=== PATIENT | male | born 1955 | race Native Hawaiian/Other Pacific Islander ===

== ENCOUNTER 2017-03-23 09:16 | Observation (INO) | payer OTHER ==
[~2017-03-23] VITALS: Ht 177.8 cm; Wt 96.0 kg
[2017-03-23] VITALS (9 sets, daily range): BP systolic 104–143; BP diastolic 68–79; PULSE 68–84; RESP 18; TEMP 97.8–98.5; O2SAT 96–99
[~2017-03-23 09:16] MED LIST: 1-ME1LIQ PO; ALTA2.5C4 PO; ATOR10 PO; CARV3.125 PO; IRBE150T4 PO; PRAS10TA PO; ST JTAB PO
[2017-03-23] MEDS ORDERED: ASPI1TAB69 PO (09:57)
[2017-03-23] MEDS ORDERED: CARV3.12 PO (09:57)
[2017-03-23] MEDS ORDERED: ATOR20TA15 PO (09:57)
[2017-03-23 10:16] LABS: AUTOMATED NEUTROPHIL # 4.9 TH/MM3 (1.8-7.7); BASOPHIL # 0.1 TH/MM3 (0-0.2); BASOPHIL % 1.1 % (0.0-2.0); EOSINOPHIL # 0.3 TH/MM3 (0-0.4); EOSINOPHIL % 4.1 % (0.0-4.0); HEMATOCRIT 45.1 % (39.0-51.0); HEMO FLAGS DIFF FINAL; LYMPHOCYTE # 1.6 TH/MM3 (1.0-4.8); MEAN CELL VOLUME 93.7 FL (80.0-100.0); MEAN CORPUSCULAR HEMOGLOBIN 31.6 PG (27.0-34.0); MEAN CORPUSCULAR HGB CONC 33.7 % (32.0-36.0); MONO % 10.1 % (0.0-8.0); NEUT % 63.7 % (16.0-70.0); PLATELET COUNT 272 TH/MM3 (150-450); RED BLOOD COUNT 4.81 MIL/MM3 (4.50-5.90); RED CELL DISTRIBUTION WIDTH 12.8 % (11.6-17.2); WHITE BLOOD COUNT 7.6 TH/MM3 (4.0-11.0)
[2017-03-23 10:29] LABS: APTT (PATIENT) 28.8 SEC (24.3-30.1); PROTHROMBIN TIME - PATIENT 11.5 SEC (9.8-11.6)
[2017-03-23 10:30] LABS: BICARBONATE 26.2 MEQ/L (21.0-32.0); POTASSIUM 4.2 MEQ/L (3.5-5.1)
[2017-03-23] MEDS ORDERED: HEPARIN-NS/PF INJ 500 ML ONE (12:15)
[2017-03-23] MEDS ORDERED: ADENOSINE STRESS TEST INJ 90 MG/30 ML VIAL ONE (12:43)
[2017-03-23] MEDS ORDERED: HEPARIN SODIUM - IV 10,000 UNITS/10 ML VIAL ONE (12:43)
[2017-03-23] MEDS ORDERED: TIROFIBAN INFUSION INJ 250 ML IV ONE (13:02)
[2017-03-23] MEDS ORDERED: CLOPIDOGREL 300 MG TAB ONE (13:07)
[2017-03-23] MEDS ORDERED: ASPIRIN 81 MG CHEW TAB ONE (13:07)
[2017-03-23] MEDS ORDERED: SODIUM CHLORIDE 0.9% FLUSH 10 ML FLUSH IV FLUSH PRN (13:15)
[2017-03-23] MEDS: TIROFIBAN INFUSION INJ 250 ML IV SCH (13:15)
[2017-03-23] MEDS ORDERED: MISC INFORMATION XX ONE (13:15)
--- NOTE | 2017-03-23 13:25 | CATHPROC ---
[employer] HIS Report Study Information Study Number Admission Scheduled Start Study Start [id number] 03/23/2017 03/23/2017 Mar 23 2017 11:54AM Referring Institution Admit Source Facility Department 1 Other [facility] - Machine Operator Hop Worker Physician and Clinical Staff Initial Vinnie Tolliver Crinkling Machine Operator Era Rubio,RN Recorder Marlen Timmons,DIRECTOR FUNDS DEVELOPMENT TECH2 Scrub Idania Vieyra,GENTRY TECH2 Procedures Performed Procedure Location (Site) Vessel Name Coronary Angiograms RCA Right Coronary L Heart Cath LV Gram-hand inj. LV LV Ventricle Stent RCA Right Coronary Wire insertion Fem Art (right) Femoral Art Equipment Time Ui Programmer Description Size Mfg Part Number Used/Scraped CATHETER, FR5 SWAN TOM 12:37 JOHNSON RUBIO FR 5 [id number] Used MONITOR TRANSDUCER, TRUWAVE 12:12 JOHNSON RUBIO * [id number] Used W/STOCKCOCK 12:12 Jumblets INDUSTRIES PACK, CCL CUSTOM * [id number] Used 12:12 Jumblets PACER PEN, SKIN DUAL W/ RULER * [id number] Used 13:01 MEDTRONIC STENT, 2.5 8 INTEGRITY 2.5 8 [id number] Used [id number] 13:03 Graceful Tables MEDICAL 30 GARCIA INDEFLATOR Used *[id number] 12:33 Graceful Tables MEDICAL SHEATH, FR5.5 PRELUDE 11CM FR 5 [id number] Used [id number] 12:50 MERIT MEDICAL SHEATH, FR6.5 PRELUDE 11CM FR 6.5 Used [id number] 12:12 Graceful [employer] MEDICAL WIRE, 3MMJ .035 180CM 180CM [id number] Used 12:12 NAMIC MANIFOLD, 4 PORT * [id number] Used 12:12 NYCOMED OMNIPAQUE, 350 MG, 100ML 100ML [id number] Used 12:12 HERRERA MEDICAL BLANKET,WARM AIR CCL * [id number] Used 12:12 TERUMO MEDICAL SHEATH, FR4 TERUMO (10CM) FR 4 [id number] Used 12:52 VOLCANO PRIME WIRE, VERRATA 185CM 185CM [id number] Used Equipment Model, Serial, Lot Number and Expiration Data Description Model Number Serial Number Lot Number Expiration Date STENT, 2.5 8 INTEGRITY [id number] 12-05-2018 History: Allergies Allergy Reaction No Known Allergies History: Risk Factors Family History of Hypertension Dyslipidemia Previous CO Previous Heart Failure Premature CAD Yes Yes No No No Prior Valve Prior PCI Prior PCIDate Prior CABG Surgery No Yes 11/16/2013 No Cerebrovascular Peripheral Artery Chronic Lung On Dialysis Diabetes Disease Disease Disease No No No No No History: Stress Tests Stress or Imaging Studies Performed Yes Standard Exercise Stress Test No Stress Echo No Stress Test SPECT No Stress Test CMR Stress Test CMR Result Yes Indeterminant Cardiac CTA Coronary Calcium Score No No History: CO/CV Data Previous Cath Date 11/16/2013 History: Other Current Smoker Method Quit Packs a Day Years Used Pack Years No Cigarettes 3 Years Ago 1 40 40 Labs Hgb (g/dl) Hct (%) WBC (l/cumm) Platelets (thousands) 12.00-18.00 37.00-55.00 4.80-10.80 140.00-450.00 15.2 45.1 7.6 272 Glucose (mg/dl) BUN (mg/dl) Creatinine (mg/dl) BUN:Creatinine (1:x) 60.00-110.00 8.00-20.00 0.10-9.00 10.00-20.00 61 20 1.2 16.7 Na (meq/l) K (meq/l) 138.00-146.00 3.80-5.10 136 4.2 INR (PTT:PT) 0.50-2.00 1 Medication Medication Total Dose (Bolus/Oral) Medication Total Dosage/Unit 1% XYLOCAINE 20 mL AGGRASTAT BOLUS 33 mL ASPIRIN 81 mg HEPARIN 4400 units PLAVIX 600 mg Medications (Bolus/Oral) Medication Time Given Dosage/Unit Administered By Reason HEPARIN 03/23/2017 11:44:53 AM 4400 units Era Rubio 4400 units HEPARIN given in lab by Era Rubio RN in Left Antecubital via Peripheral IV. 1% XYLOCAINE 03/23/2017 12:30:01 PM 20 mL Vinnie Chadwick 20 mL 1% XYLOCAINE given in lab by Vinnie Chadwick in Right Groin via Subcutaneous. AGGRASTAT BOLUS 03/23/2017 1:05:19 PM 33 mL Era Rubio 33 mL AGGRASTAT BOLUS given in lab by Era Rubio, GERSON in Left Antecubital via Peripheral IV. PLAVIX 03/23/2017 1:10:05 PM 600 mg Era Rubio 600 mg PLAVIX given by Era Rubio RN via Oral. ASPIRIN 03/23/2017 1:10:12 PM 81 mg Era Rubio 81 mg ASPIRIN given by Era Rubio RN via Oral. Medication (Drip) Medication Time Given Dosage/Unit Concentration/Unit Diluent (ml) Solution ADENOSINE DRIP 03/23/2017 12:57:23 PM 504 mL/hr 90 mL 90 NaCl .9 504 mL/hr ADENOSINE DRIP given in lab by Era Rubio RN via Peripheral IV. Pump/Drip Flow = 50 4 ml/hr using NaCl .9 with a concentration of 90 mL in 90 ml. AGGRASTAT DRIP 03/23/2017 1:07:00 PM 0.157 mcg/kg/min 12.5 mg 250 NaCl .9 0.157 mcg/kg/min AGGRASTAT DRIP given in lab by Era Rubio RN in Left Antecubital via Periphe ral IV. Pump/Drip Flow = 12 ml/hr using NaCl .9 with a concentration of 12.5 mg in 250 ml. IV Solutions 03/23/2017 12:13:28 PM 0 mL (IV) 500 NaCl .9 IV Solutions given by Era Rubio RN in Left Antecubital via Peripheral IV. Pump/Drip Flow = 2 0 ml/hr using NaCl .9. Initial Case Assessment Cardiovascular HR Rhythm NIBP Chest Pain 79 Sinus 144/85 0 Edema Present Skin color Skin None Normal Warm Dry Circulatory - Right Pulses Dorsalis Pedis Femoral 1 3 Scale (0,1,2,3,4,d) Circulatory - Left Pulses Dorsalis Pedis Femoral 1 3 Scale (0,1,2,3,4,d) Neurological State Oriented to time-place- Alert Moves all extremities person Respiration - General Respiration Rate SpO2 (%) O2 (lpm) (B/min) 10 99 0 Final Case Assessment Cardiovascular HR Rhythm NIBP Chest Pain 67 Sinus 144/87 0 Edema Present Skin color Skin None Normal Warm Dry Circulatory - Right Pulses Dorsalis Pedis Femoral 1 3 Scale (0,1,2,3,4,d) Circulatory - Left Pulses Dorsalis Pedis Femoral 1 3 Scale (0,1,2,3,4,d) Neurological State Oriented to time-place- Alert Moves all extremities person Respiration - General Respiration Rate SpO2 (%) O2 (lpm) (B/min) 8 97 0 Chronological Log Time Study Chronological Log 11:44:53 4400 units HEPARIN given in lab by Era Rubio, RN in Left Antecubital via Peripheral IV. 12:10:25 Patient arrived via Bed. 12:10:26 Patient Name, D.O.B, / Armband Verified By R.N. 12:10:27 Consent signed by the physician and the patient and verified by the Machine Operator Hop Worker staff. 12:10:32 Pre-op and post- op instructions given; patient acknowledges understanding of instructions. 12:10:33 Verbal Stimulation=2 Physical Stimulation=2 Airway=2 Respiration=2 TOTAL=8. (0=absent, 1=li mited, 2=present) 12:12:40 Presedation assessment performed by Machine Operator Hop Worker RN. 12:12:44 Patient has been NPO for More than 6Hrs. 12:12:45 Skin Breakdown- none per patient. 12:12:56 Patient Warmer Placed on the Table. 12:12:58 Garfield Prominences Protected 12:13:00 A # 20 IV was noted in the Antecubital (left). Grade = 0 IV Solutions given by Era Rubio, RN in Left Antecubital via Peripheral IV. Pump/Drip Fl ow = 20 ml/hr using 12:13:28 NaCl .9. 12:13:48 History and physical on the chart or being dictated. Assessment: Initial Case, HR=79 BPM, Rhythm=Sinus, FETJ=386/85 mmhg, Chest Pain=0, Edema=None, Color=Normal, Skin = Warm, Dry Right Pulses: Jhonny Ped=1, Femoral=3 12:13:50 Left Pulses: Jhonny Ped=1, Femoral=3 Neurological: State=Alert, Ox3, OROZCO Respiration: Resp=10 B/min, SpO2=99 %, O2=0 lpm Vitals capture started with the following parameters, Patient=Adult, Interval=5 min, Initial Pr ngcybc=476 mmHg, 12:13:55 Deflation Rate=5 mmHg 12:14:38 HR=69 bpm, HJCC=994/85 mmhg, SpO2=98.0 %, Resp=11 B/min, Pain=0, Elda=10, Landeros=2 12:17:55 Reference ECG taken 12:19:33 HR=66 bpm, BREL=838/85 mmhg, MeQ1=087.0 %, Resp=17 B/min, Pain=0, Elda=10, Landeros=2 12:24:36 HR=63 bpm, ITDY=960/76 mmhg, PrJ7=098.0 %, Resp=20 B/min, Pain=0, Elda=10, Landeros=2 12:25:43 Bilateral groins prepped with 2% chlorhexidine, and with a 3 min. waiting time. Time Out. Correct patient, correct procedure,correct physician, ,power injector not loaded with contrast with surgical 12:28:53 team present. Time Out Concurred by , individual staff in procedure 12:29:14 Case Start 12:29:29 HR=59 bpm, KBVV=020/86 mmhg, SpO2=99.0 %, Resp=15 B/min, Pain=0, Elda=10, Landeros=2 12:30:01 20 mL 1% XYLOCAINE given in lab by Vinnie Chadwick in Right Groin via Subcutaneous. 12:31:05 Access site was Right Femoral Artery. 12:31:09 A SHEATH, FR4 TERUMO (10CM) FR 4 was advanced into the Fem Art (right) using the Modified S eldinger technique. 12:31:15 Pressure channel 1 zeroed. 12:32:33 Access site was Right Femoral Vein. A SHEATH, FR5.5 PRELUDE 11CM FR 5 was advanced into the Fem Vein (right) using the Modified Patti honorio 12:32:50 technique. 12:33:31 A catheter was inserted via Fem Vein (right) Recorded Pressure: PCW, HR=85, Condition=Condition 1 12:34:09 (Pulmonary Capillary Wedge) PCW 24/14 Recorded Pressure: MPA, HR=75, Condition=Condition 1 12:34:23 (Main Pulmonary Artery) MPA 14/09/18 12:34:32 HR=77 bpm, QIQS=327/93 mmhg, SpO2=98.0 %, Resp=8 B/min, Pain=0, Elda=10, Landeros=2 Recorded Pressure: RV, HR=67, Condition=Condition 1 12:35:15 (Right Ventricle) RV /04/22 Recorded Pressure: RA, HR=67, Condition=Condition 1 12:35:26 (Right Atrium) RA 8/6/ 12:36:26 Catheter was removed 12:36:50 Saturation: Site=Ao (Aorta) , O2=97 %, Hgb=15.2 gm/dl, Condition=Condition 1. Used in calcu lation. 12:37:03 The LV was manually injected with 10 cc's and visualized. OMNIPAQUE, 350 MG, 100ML 100ML us ed. Recorded Pressure: LV, HR=71, Condition=Condition 1 12:37:29 (Left Ventricle) LV 136/13/26 Recorded Pressure: LV, Ao, HR=89, Condition=Condition 1 12:37:43 (Left Ventricle) LV 136/4/17, (Aorta) Ao 135/73/100 12:38:18 The RCA was injected and visualized at various angles. OMNIPAQUE, 350 MG, 100ML 100ML used . 12:39:33 HR=73 bpm, PSXQ=106/88 mmhg, SpO2=99.0 %, Resp=11 B/min, Pain=0, Elda=10, Landeros=2 12:40:08 Catheter was removed A JL 4.0 INFINITI CATHETER FR 4 was advanced over a wire. OMNIPAQUE, 350 MG, 100ML 100ML was us ed for 12:40:09 injections. 12:40:29 Saturation: Site=PA (Pulmonary Artery) , O2=74.8 %, Hgb=15.2 gm/dl, Condition=Condition 1. Used in calculation. 12:40:49 Saturation: Site=RA (Right Atrium) , O2=78.4 %, Hgb=15.2 gm/dl, Condition=Condition 1. Used in calculation. Recorded Pressure: Ao, HR=66, Condition=Condition 1 12:41:08 (Aorta) Ao 126/65/89 12:44:34 HR=83 bpm, TTBL=110/92 mmhg, OtO7=146.0 %, Resp=13 B/min, Pain=0, Elda=10, Landeros=2 12:49:23 A sheath was exchanged in the Fem Art (right). This was necessary in order to achieve vascu lar hemostasis. 12:49:37 HR=73 bpm, RHEM=972/83 mmhg, FpH6=368.0 %, Resp=12 B/min, Pain=0, Elda=10, Landeros=2 12:50:12 Activated Clotting Time Drawn A JR 4.0 GUIDE CATHETER FR 6 was advanced over a wire. OMNIPAQUE, 350 MG, 100ML 100ML was used for 12:52:07 injections. 12:55:02 A PRIME WIRE, VERRATA 185CM 185CM was inserted via Fem Art (right). 12:55:03 HR=67 bpm, DXHR=342/85 mmhg, SpO2=99.0 %, Resp=15 B/min, Pain=0, Elda=10, Landeros=2 12:55:10 ACT (Normal Range 90-180) = 269 504 mL/hr ADENOSINE DRIP given in lab by Era Rubio, RN via Peripheral IV. Pump/Drip Nino w = 504 ml/hr 12:57:23 using NaCl .9 with a concentration of 90 mL in 90 ml. 12:58:45 FFR IN PROGRESS 12:59:01 ADENOSINE DRIP DISCONTINUED 13:00:12 HR=78 bpm, PICP=146/91 mmhg, QuS3=324.0 %, Resp=13 B/min, Pain=0, Elda=10, Landeros=2 An STENT, 2.5 8 INTEGRITY 2.5 8 Bare Metal Stent was inserted through a JR 4.0 GUIDE CATHETER F R 6 over a 13:02:35 PRIME WIRE, VERRATA 185CM 185CM. 13:02:58 A implantable was deployed using a 30 GARCAI INDEFLATOR at 9 atmospheres for 10 seconds in the RCA. 13:03:42 Delivery device removed 13:03:51 Wire removed 13:03:53 Catheter was removed 13:04:13 Case End 13:04:13 Catheter(s) removed without difficulty 13:04:15 In the Fem Art (right) the SHEATH, FR6.5 PRELUDE 11CM FR 6.[address] by Vinnie Alicea. 13:04:20 In the Fem Vein (right) the SHEATH, FR5.5 PRELUDE 11CM FR [address] by Vinnie Hill. 13:04:36 HR=62 bpm, YGMI=727/86 mmhg, FpJ3=361.0 %, Resp=11 B/min, Pain=0, Elda=10, Landeros=2 13:05:19 33 mL AGGRASTAT BOLUS given in lab by Era Rubio RN in Left Antecubital via Periphe ral IV. 13:06:43 Sterile dressing applied to site 13:06:44 No case complications noted. 13:06:51 Cine recording checked. 13:06:56 Implantable Device card placed in patient's chart. 13:06:57 Bedside Report will be given. 13:06:59 Contrast Scanned 0.157 mcg/kg/min AGGRASTAT DRIP given in lab by Era Rubio RN in Left Antecubital via P eripheral IV. 13:07:00 Pump/Drip Flow = 12 ml/hr using NaCl .9 with a concentration of 12.5 mg in 250 ml. 13:07:07 A Left Heart Cath was performed. 13:09:42 HR=63 bpm, MOVB=705/75 mmhg, KqA7=118.0 %, Resp=16 B/min, Pain=0, Elda=10, Landeros=2 13:10:05 600 mg PLAVIX given by Era Rubio RN via Oral. 13:10:12 81 mg ASPIRIN given by Era Rubio RN via Oral. Assessment: Final Case, HR=67 BPM, Rhythm=Sinus, CVHE=277/87 mmhg, Chest Pain=0, Edema=None, Color=Normal, Skin = Warm, Dry Right Pulses: Jhonny Ped=1, Femoral=3 13:14:30 Left Pulses: Jhonny Ped=1, Femoral=3 Neurological: State=Alert, Ox3, OROZCO Respiration: Resp=8 B/min, SpO2=97 %, O2=0 lpm 13:14:39 HR=68 bpm, WRXC=567/87 mmhg, SpO2=99.0 %, Resp=9 B/min, Pain=0, Elda=10, Landeros=2 13:14:58 Vitals capture stopped. 13:18:[address] [facility] Study - Contrast Media Used In Study Contrast Total Opened (mL) Total Used (mL) Total Wasted (mL) Omnipaque 90 90 0 End Study - Maximum Contrast Load Max Contrast Load (mL) 264.6 End Study - Radiation Exposure Fluoro Time (minutes) 3.8 End Study - Patient Disposition Complications Transferred To Telemetry Bed
[2017-03-23] MEDS ORDERED: CLOPIDOGREL 300 MG TAB PO ONE (13:45)
[2017-03-23] MEDS ORDERED: IOHEXOL 350 MG/ML 100 ML BTL (for Cath Lab) OTHER ONE (15:26)
[2017-03-23] MEDS: SODIUM CHLORIDE 0.9% FLUSH 10 ML FLUSH IV FLUSH SCH (21:00)
[2017-03-23] MEDS: CARVEDILOL 3.125 MG TAB PO SCH (21:26)
[2017-03-24] VITALS (11 sets, daily range): BP systolic 95–121; BP diastolic 60–70; PULSE 63–80; RESP 18; TEMP 97.8–98.7; O2SAT 96
[2017-03-24] MEDS: TIROFIBAN INFUSION INJ 250 ML IV SCH (04:07)
[2017-03-24 04:44] LABS: AUTOMATED NEUTROPHIL # 5.5 TH/MM3 (1.8-7.7); BASOPHIL # 0.1 TH/MM3 (0-0.2); BASOPHIL % 0.8 % (0.0-2.0); EOSINOPHIL # 0.3 TH/MM3 (0-0.4); EOSINOPHIL % 3.7 % (0.0-4.0); HEMATOCRIT 39.1 % (39.0-51.0); HEMO FLAGS DIFF FINAL; LYMPH % 25.6 % (9.0-44.0); LYMPHOCYTE # 2.4 TH/MM3 (1.0-4.8); MEAN CELL VOLUME 92.2 FL (80.0-100.0); MEAN CORPUSCULAR HEMOGLOBIN 32.3 PG (27.0-34.0); MONO % 11.1 % (0.0-8.0); NEUT % 58.8 % (16.0-70.0); PLATELET COUNT 248 TH/MM3 (150-450); RED BLOOD COUNT 4.24 MIL/MM3 (4.50-5.90); RED CELL DISTRIBUTION WIDTH 12.6 % (11.6-17.2); WHITE BLOOD COUNT 9.3 TH/MM3 (4.0-11.0)
[2017-03-24 05:05] LABS: BICARBONATE 27.1 MEQ/L (21.0-32.0)
[2017-03-24 05:07] LABS: HDL CHOLESTEROL 35.5 MG/DL (40.0-60.0)
--- NOTE | 2017-03-24 07:42 | EKG ---
Date Performed: 03/23/2017 Time Performed: 10:06:06 PTAGE: 61 years EKG: Sinus rhythm . Leftward axis Inferior infarct - age undetermined Anteroseptal infarct - age undetermined Abnormal ECG PREVIOUS TRACING : 04/27/2014 05.54 DOCTOR: Mustapha Marsh Interpretating Date/Time 03/24/2017 07:41:39
[2017-03-24] MEDS: CARVEDILOL 3.125 MG TAB PO SCH (08:58)
[2017-03-24] MEDS ORDERED: ASPIRIN 81 MG CHEW TAB PO SCH (09:00)
[2017-03-24] MEDS: SODIUM CHLORIDE 0.9% FLUSH 10 ML FLUSH IV FLUSH SCH (09:00)
[2017-03-24] MEDS ORDERED: RAMIPRIL 2.5 MG CAP PO SCH (09:00)
[2017-03-24] MEDS ORDERED: CLOPIDOGREL 75 MG TAB PO SCH (09:00)
--- NOTE | 2017-03-24 15:38 | EKG ---
Date Performed: 03/23/2017 Time Performed: 20:07:54 PTAGE: 61 years EKG: Sinus rhythm Poor R wave progression - cannot rule out anteroseptal infarct Compared to prior tracing no signific ant change Abnormal ECG PREVIOUS TRACING : 03/23/2017 10.06 DOCTOR: Buddy Resendez Interpretating Date/Time 03/24/2017 15:35:40
--- NOTE | 2017-03-24 15:38 | EKG ---
Date Performed: 03/24/2017 Time Performed: 06:08:36 PTAGE: 61 years EKG: Sinus rhythm Possible anterior infarct - age undetermined Compared to prior tracing no significant change Abnorma l ECG PREVIOUS TRACING : 03/23/2017 20.07 DOCTOR: Buddy Resendez Interpretating Date/Time 03/24/2017 15:35:50
--- NOTE | 2017-03-25 07:46 | MA ---
cc: STARR CRAVEN M.D. DATE 03/23/2017 PROCEDURE PERFORMED Right heart catheterization, left heart catheterization, left ventriculography, coronary angiography, FFR of the mid right coronary artery and direct bare metal stent to the mid right coronary artery. INDICATIONS High-risk nuclear stress test, coronary disease, cardiomyopathy, new-onset cardiac symptoms of resting chest pain, unstable angina, [place] Cardiovascular Society class IV angina, large perfusion defect on nuclear stress test. PROCEDURE The patient was brought to the cardiac catheterization laboratory, prepped and draped in the usual sterile fashion. 10 cc's of 1% Lidocaine was used to locally anesthetize the right common femoral artery. A 4-Monegasque sheath placed in the right common femoral artery, 5-Monegasque sheath placed in the right common femoral vein. Right heart catheterization was performed first with following findings: Pulmonary capillary wedge pressure 24/17-14, PA pressure 30/10-18. RV pressure 20/6-7. RA pressures 8/6-5. Femoral artery sat on room air 97.0%. PA sat 74.8%, RA sat 78.4%. The cardiac output by Bobby is 4.8 liters per minute. Cardiac index by Bobby is 2.7 liters per minute per meter square. The SVR is 1386 dynes. Left heart catheterization was then performed with 4 Monegasque JR-4, JL-4 catheter with the following findings: LV pressure is 135/8-10, ejection fraction 45%. The inferior apex is moderate to severely hypokinetic. The right coronary is a dominant, relatively small vessel and has a focal 70% stenosis in the mid segment. The proximal segment has a 40-50% stenosis. Also, the right coronary artery has a proximal 20-30% stenosis. The left main coronary artery is long and has no significant disease angiographically. The left circumflex vessel has mild disease in the mid AV groove after a second obtuse marginal vessel with up to 20% angiographically. The first obtuse marginal vessel is a small vessel with no significant obstructive disease. The second obtuse marginal vessel is a large vessel with mild diffuse disease in the proximal mid segment up to 20% angiographically. LAD is transapical. There is a long 60% stenosis in the midsegment. The first diagonal artery is a medium to large vessel with an ostial 40-30% stenosis. The 6-Monegasque sheath was changed for a 4-Monegasque sheath. The patient was given 70 units per kilo of heparin, ACT 269. A 6-Monegasque JR-4 guide was placed into the right coronary artery ostium. A 0.014 inch [place] pressure wire was placed into the proximal right coronary artery. The introducer was removed. The was firmly secured. The guide catheter was thoroughly flushed with normal saline up to 20 cc. Pressures were then normalized. Then I crossed the mid RCA stenosis. Initial IFR was 0.90. The patient was infused with 140 mcg/kg/minute of adenosine. The FFR went to 0.79 within one minute. The adenosine infusion was discontinued. We then proceeded to place a 258 Integrity stent in the mid RCA with one inflation to 9 atmospheres for 20 seconds. The stenosis went from 70% to 0% with DA-III flow. CONCLUSION 1. Unstable angina. [place] Cardiovascular Society class IV angina, resting angina, coronary disease, high risk nuclear stress test culprit 70% mid right coronary artery stenosis with an FFR of 0.79 at one minutes to adenosine infusion and an IFR of 0.90. 2. 60% mid-LAD lesion as detailed above. 3. Cardiomyopathy of 45% with severe hypokinesis in the inferior apical wall. 4. Elevated right heart cath pressures as detailed above. Successful drug PCI bare metal stent of the mid right coronary from 70% to 0% with DA III flow. 5. Recommend aspirin 162 mg daily, Plavix 600 mg load, then 75 mg a day for 12-15 months. Aggrastat drip per protocol. Continue medical management of coronary disease and cardiac risk factor modification. I have instructed the patient to follow up with me on February 24. MD VICKY Us/ENRIQUE /1:11 PM /7:30 AM
--- NOTE | 2017-03-28 15:39 | PD.CARD.PN ---
Subjective Subjective Remarks gave patient rx for plavix 75 mg qd handwritten by Vinnie Ellis MD March 28, 2017 15:39
== END 2017-03-24 10:36 | disposition home or self-care (01) ==
LOC: HCAT 09:16 → HDIC 09:17 → HCIN 14:55 → HCAT 15:59
PROVIDERS: ADMIT Internal Medicine Interventional Cardiology; ATTEND Internal Medicine Interventional Cardiology
DX: I25.110 Atherosclerotic heart disease of native coronary artery with unstable angina pectoris (principal); I42.9 Cardiomyopathy, unspecified
CPT/HCPCS: 80048; 80061; 82550; 85002; 85025; 85610; 85730; 92928; 93005; 93460; 93571; C1769; C1876; C1887; C1893; G0378; J0153; J1644; J3246; Q9967

== ENCOUNTER 2017-07-31 06:25 | Day surgery (SDC) | payer OTHER ==
[2017-07-31] VITALS (12 sets, daily range): BP systolic 114–126; BP diastolic 64–76; PULSE 73–88; RESP 16–18; TEMP 98.5–99.5; O2SAT 94–97
[~2017-07-31] VITALS: Ht 175.3 cm; Wt 95.5 kg
[~2017-07-31 06:25] MED LIST changes: -1-ME1LIQ PO; -ALTA2.5C4 PO; +ASPI1TAB69 PO; -ATOR10 PO; +ATOR20TA15 PO; +CARV3.12 PO; -CARV3.125 PO; -IRBE150T4 PO; -PRAS10TA PO; -ST JTAB PO
[2017-07-31] MEDS ORDERED: IOHEXOL 350 MG/ML 100 ML BTL (for Cath Lab) OTHER ONE (06:26)
[2017-07-31 07:25] LABS: AUTOMATED NEUTROPHIL # 5.7 TH/MM3 (1.8-7.7); BASOPHIL # 0.1 TH/MM3 (0-0.2); EOSINOPHIL # 0.4 TH/MM3 (0-0.4); EOSINOPHIL % 4.3 % (0.0-4.0); HEMATOCRIT 46.2 % (39.0-51.0); HEMO FLAGS DIFF FINAL; LYMPH % 18.1 % (9.0-44.0); LYMPHOCYTE # 1.5 TH/MM3 (1.0-4.8); MEAN CELL VOLUME 93.7 FL (80.0-100.0); MEAN CORPUSCULAR HEMOGLOBIN 31.7 PG (27.0-34.0); MEAN CORPUSCULAR HGB CONC 33.9 % (32.0-36.0); MONO % 9.5 % (0.0-8.0); NEUT % 67.1 % (16.0-70.0); PLATELET COUNT 295 TH/MM3 (150-450); RED BLOOD COUNT 4.93 MIL/MM3 (4.50-5.90); RED CELL DISTRIBUTION WIDTH 13.3 % (11.6-17.2); WHITE BLOOD COUNT 8.6 TH/MM3 (4.0-11.0)
[2017-07-31] MEDS ORDERED: NS 1000P @30 MLS/HR (KVO) IV SCH (07:30)
[2017-07-31 07:32] LABS: APTT (PATIENT) 28.4 SEC (24.3-30.1); PROTHROMBIN TIME - PATIENT 10.8 SEC (9.8-11.6)
[2017-07-31] MEDS ORDERED: ATOR40TA16 PO (07:36)
[2017-07-31] MEDS ORDERED: ASPI81TA67 PO (07:36)
[2017-07-31] MEDS ORDERED: PLAV75TA29 PO (07:36)
[2017-07-31] MEDS ORDERED: IRBE150T49 PO (07:36)
[2017-07-31] MEDS ORDERED: AMLO10 PO (07:36)
[2017-07-31 07:44] LABS: BICARBONATE 26.1 MEQ/L (21.0-32.0); POTASSIUM 3.9 MEQ/L (3.5-5.1)
[2017-07-31] MEDS ORDERED: ASPIRIN 81 MG CHEW TAB PO SCH (08:00)
[2017-07-31] MEDS ORDERED: SODIUM CHLORID 0.9% 500 ML INJ 500 ML ONE (08:03)
[2017-07-31] MEDS ORDERED: HEPARIN-NS/PF INJ 1,000 ML ONE (08:03)
[2017-07-31] MEDS ORDERED: ADENOSINE STRESS TEST INJ 90 MG/30 ML VIAL ONE (08:57)
[2017-07-31] MEDS ORDERED: HEPARIN SODIUM - IV 10,000 UNITS/10 ML VIAL ONE (09:00)
[2017-07-31] MEDS ORDERED: TIROFIBAN INFUSION INJ 250 ML IV ONE (09:16)
[2017-07-31] MEDS ORDERED: CLOPIDOGREL 300 MG TAB ONE (09:26)
[2017-07-31] MEDS ORDERED: TIROFIBAN INFUSION INJ 250 ML IV SCH (09:30)
[2017-07-31] MEDS ORDERED: SODIUM CHLORIDE 0.9% FLUSH 10 ML FLUSH PRN (09:30)
[2017-07-31] MEDS ORDERED: MISC INFORMATION XX ONE (09:30)
[2017-07-31] MEDS ORDERED: CLOPIDOGREL 300 MG TAB PO ONE (09:30)
[2017-07-31] MEDS ORDERED: ATORVASTATIN 20 MG TAB PO ONE (10:30)
--- NOTE | 2017-07-31 13:43 | EKG ---
Date Performed: 07/31/2017 Time Performed: 07:27:22 PTAGE: 62 years EKG: Sinus rhythm Leftward axis Cannot rule out Inferior infarct - age undetermined Anteroseptal infarct - age undeter mined Abnormal ECG No significant change from prior electrocardiogram. PREVIOUS TRACING : 03/24/2017 06.08 DOCTOR: Angelo Kelley Interpretating Date/Time 07/31/2017 13:41:45
[2017-07-31] MEDS: SODIUM CHLORIDE 0.9% FLUSH 10 ML FLUSH SCH (20:25)
[2017-08-01] VITALS (19 sets, daily range): BP systolic 101–124; BP diastolic 70–74; PULSE 68–99; RESP 12–18; TEMP 98–98.6; O2SAT 96–99
[2017-08-01 04:25] LABS: BASOPHIL # 0.1 TH/MM3 (0-0.2); EOSINOPHIL # 0.3 TH/MM3 (0-0.4); EOSINOPHIL % 3.5 % (0.0-4.0); HEMATOCRIT 40.9 % (39.0-51.0); HEMO FLAGS DIFF FINAL; LYMPH % 21.9 % (9.0-44.0); LYMPHOCYTE # 1.7 TH/MM3 (1.0-4.8); MEAN CELL VOLUME 93.9 FL (80.0-100.0); MEAN CORPUSCULAR HGB CONC 34.1 % (32.0-36.0); MONO % 9.7 % (0.0-8.0); NEUT % 63.9 % (16.0-70.0); PLATELET COUNT 281 TH/MM3 (150-450); RED BLOOD COUNT 4.35 MIL/MM3 (4.50-5.90); RED CELL DISTRIBUTION WIDTH 13.1 % (11.6-17.2); WHITE BLOOD COUNT 7.8 TH/MM3 (4.0-11.0)
[2017-08-01 04:44] LABS: BICARBONATE 26.4 MEQ/L (21.0-32.0); POTASSIUM 3.9 MEQ/L (3.5-5.1)
[2017-08-01] MEDS ORDERED: CLOPIDOGREL 75 MG TAB PO SCH (09:00)
[2017-08-01] MEDS ORDERED: ASPIRIN 81 MG CHEW TAB PO SCH (09:00)
[2017-08-01] MEDS: SODIUM CHLORIDE 0.9% FLUSH 10 ML FLUSH SCH (09:46)
--- NOTE | 2017-08-01 11:20 | EKG ---
Date Performed: 08/01/2017 Time Performed: 06:37:48 PTAGE: 62 years EKG: Sinus rhythm . Leftward axis Anteroseptal infarct - age undetermined Abnormal ECG No significant change from prior electrocardiogram. PREVIOUS TRACING : 07/31/2017 07.27 DOCTOR: Angelo Kelley Interpretating Date/Time 08/01/2017 11:20:00
--- NOTE | 2017-08-03 06:34 | MA ---
cc: STARR CRAVEN M.D. DATE 07/31/2017 PROCEDURE Left heart catheterization, left ventriculography, coronary angiography, FFR of the mid-LAD and direct PCI with bare metal stent of the mid-LAD. INDICATIONS Coronary artery disease. New onset cardiac symptom of moderate chest pain at rest, unstable angina. [place] Cardiovascular Society Class IV angina with known 60% stenosis in the mid-LAD by cath in March of 2017. PROCEDURE The patient was brought to the Cardiac Catheterization Laboratory, prepped and draped in the usual sterile fashion. 10 cc of 1% lidocaine was used to locally anesthetize the right common femoral artery. A 4-Romansh sheath was successfully placed in the right common femoral artery. 4-Romansh JR4 and JL4 catheters were used to perform left coronary angiography and left ventriculography. FINDINGS: LV pressure is 130/10-12. Ejection fraction is 50%. The anterior wall appears to be subtly, mildly hypokinetic. The right coronary artery is dominant. The stent in the proximal segment is widely patent. There is 20% disease in the proximal to mid-segment. The mid to distal segment has a 50-60% stenosis. The left main coronary artery is long with no significant obstructive disease. The left circumflex vessel has mild disease beyond the mid-segment, up to 10-20% angiographically. The first obtuse marginal vessel is a small vessel; no significant obstructive disease. The second obtuse marginal vessel is a large vessel with mild disease in the proximal to mid-segment up to 20% angiographically. It approaches the apex. The LAD has an ostial proximal 20-30% stenosis. The LAD is transapical. There is a long, 70% stenosis in the mid-segment. The first diagonal artery is a medium-sized vessel with an ostial 40-50% stenosis. INTERVENTION A 6-Romansh sheath was exchanged for a 4-Romansh sheath. 70 units/kg of heparin was given for an ACT of 310. A 6-Romansh XB 3.5 guide was placed into the ostium of the left main. A 0.014 Ryder pressure wire was placed into the proximal LAD. The introducer was removed. The Tuohy seal was tightened adequately. The catheter was flushed with 20 cc of normal saline. Pressure wave forms were normalized. The patient was then infused with 140 mcg/minute of adenosine. FFR went to 0.79 within 40 seconds. Adenosine infusion was then stopped. Then placed a 3.0/15 Integrity stent directly in the mid-LAD, one inflation of 9 atmospheres for 20 seconds. The stenosis went from 70% to 0% with DA-3 flow. NOTE: While the balloon was inflated, this did reproduce the patient's chest pain that he had at home prior to the procedure. CONCLUSIONS 1. Unstable angina. New onset cardiac symptoms of chest pain at rest; [place] Cardiovascular Society Class IV anging. 2. Coronary artery disease. Culprit 70% stenosis in the mid-LAD with an FFR of 0.79 after 40 seconds of adenosine infusion as detailed above. 3. Otherwise moderate disease in the mid-right coronary artery and ostial first diagonal artery as detailed above. 4. Low and normal LV systolic function, EF of 50%. The anterior wall is subtly to mildly hypokinetic. 5. Normal LV pressures (130/10-12). 6. Successful direct PCI with bare metal stent of the mid-LAD from 70% to 0% with DA-3 flow. RECOMMENDATIONS 1. Plavix 600 mg p.o. load, then continue 75 mg per day for 12-15 months. 2. Aspirin 162 mg daily. 3. Aggrastat drip per protocol. 4. The patient will continue Lipitor 40 mg h.s. He does have a history of myalgias and difficulty tolerating statins; however, he is attempting to tolerate higher doses, particularly given the progressive nature of his atherosclerotic coronary artery disease. MD VICKY Us/LAURA /9:23 AM /6:08 AM
--- NOTE | 2017-08-03 09:02 | CATHPROC ---
[employer] HIS Report Study Information Study Number Admission Scheduled Start Study Start [id number] Jul 31 2017 6:25AM 07/31/2017 Jul 31 2017 8:04AM [place] [facility] Cardiac Catheterization Admit Source Facility Department Other [facility] - Domestic Violence Counselor Physician and Clinical Staff Initial Vinnie Tolliver Smokehouse Operator Babatunde Ramírez,GERSON Recorder Pravin Aragon RCIS(BS) Scrub Yogi Díaz,RT(R) Procedures Performed Procedure Location (Site) Vessel Name Coronary Angiograms LCA Left Coronary Coronary Angiograms RCA Right Coronary LV Gram-hand inj. LV LV Ventricle Stent LAD Mid Left Coronary Wire insertion Fem Art (right) Femoral Art Equipment Time Performance Test Architect Description Size Mfg Part Number Used/Scraped TRANSDUCER, TRUWAVE [id number] 08:13 JOHNSON CASTRO * Used W/STOCKCOCK *[id number] [id number] *[id number] [id number] *[id number] *[id number] 08:13 [employer] PACK, CCL CUSTOM * Used *[id number] 08:13 [employer] PACER PEN, SKIN DUAL W/ RULER * Used *[id number] 09:15 [employer] STENT, 3.0 15 INTEGRITY 3.0 15 Used *[id number] 09:16 [employer] MEDICAL 30 GARCIA INDEFLATOR Used *[id number] 09:01 [employer] MEDICAL SHEATH, FR6.5 PRELUDE 11CM FR 6.5 038ACT Used *[id number] 08:13 [employer] MEDICAL WIRE, 3MMJ .035 180CM 180CM Used *[id number] 08:13 NAMIC MANIFOLD, 4 PORT * Used *[id number] 08:13 [employer] OMNIPAQUE, 350 MG, 150ML 150ML [id number] Used [id number] 08:13 [employer] BLANKET,WARM AIR CCL * Used *[id number] 08:13 TERUMO MEDICAL SHEATH, FR4 TERUMO (10CM) FR 4 Used *[id number] 09:09 [employer] PRIME WIRE, VERRATA 185CM 185CM [id number] *[id number] Used Equipment Model, Serial, Lot Number and Expiration Data Description Model Number Serial Number Lot Number Expiration Date PRIME WIRE, VERRATA 185CM [id number] 02-14-2020 History: Allergies Allergy Reaction No Known Allergies History: Risk Factors Family History of Hypertension Dyslipidemia Previous [place] Previous Heart Failure Premature CAD Yes Yes No No Yes Prior Valve Prior PCI Prior PCIDate Prior CABG Surgery No Yes 11/16/2013 No Cerebrovascular Peripheral Artery Chronic Lung On Dialysis Diabetes Disease Disease Disease No No No No No History: Stress Tests Stress or Imaging Studies Performed Yes Standard Exercise Stress Test No Stress Echo No Stress Test SPECT No Stress Test CMR Stress Test CMR Result Yes Indeterminant Cardiac CTA Coronary Calcium Score No No History: WV/CV Data Previous Cath Date 11/16/2013 History: Other Current Smoker Method Quit Packs a Day Years Used Pack Years No Cigarettes 3 Years Ago 1 40 40 Labs Hgb (g/dl) Hct (%) WBC (l/cumm) Platelets (thousands) 11.60-17.00 35.00-51.00 4.00-11.00 150.00-450.00 15.6 46.2 8.6 295 Glucose (mg/dl) BUN (mg/dl) Creatinine (mg/dl) BUN:Creatinine (1:x) 74.00-106.00 7.00-18.00 0.50-1.30 10.00-20.00 151 19 1.1 17.3 Na (meq/l) K (meq/l) 136.00-145.00 3.50-5.10 136 3.9 INR (PTT:PT) 0.90-1.10 1 CPK-MB (ng/ML) 0.50-3.60 Not Drawn Medication Medication Total Dose (Bolus/Oral) Medication Total Dosage/Unit 1% XYLOCAINE 20 mL AGGRASTAT BOLUS 25 mL (IV) HEPARIN 6000 units PLAVIX 600 mg Medications (Bolus/Oral) Medication Time Given Dosage/Unit Administered By Reason 1% XYLOCAINE 07/31/2017 8:53:29 AM 20 mL Vinnie Chadwick 20 mL 1% XYLOCAINE given in lab by Vinnie Chadwick in Right Groin via Subcutaneous. Ordered by Vinnie Velazquez. HEPARIN 07/31/2017 9:01:07 AM 6000 units Babatunde Ramírez 6000 units HEPARIN given in lab by Babatunde Ramírez, RN via Peripheral IV. Ordered by Vinnie Chadwick. AGGRASTAT BOLUS 07/31/2017 9:21:40 AM 25 mL (IV) Babatunde Ramírez AGGRASTAT BOLUS given in lab by Babatunde Ramírez RN via Peripheral IV. Pump/Drip Flow = 0 ml/hr using [ Solution Name]. Ordered by Vinnie Chadwick. 47.5 ml X 1 PLAVIX 07/31/2017 9:25:07 AM 600 mg Babatunde Ramírez 600 mg PLAVIX given in lab by Babatunde Ramírez RN via Oral. Ordered by Vinnie Chadwick. Medication (Drip) Medication Time Given Dosage/Unit Concentration/Unit Diluent (ml) Solution ADENOSINE DRIP 07/31/2017 9:10:15 AM 140 mcg/kg/min 90 mg 90 NaCl .9 140 mcg/kg/min ADENOSINE DRIP given in lab by Babatunde Ramírez RN via Peripheral IV. Pump/Drip Flow = 7 98 ml/hr using NaCl .9 with a concentration of 90 mg in 90 ml. Ordered by Vinnie Chadwick. AGGRASTAT DRIP 07/31/2017 9:21:56 AM 0.15 mcg/kg/min 12.5 mg 250 NaCl .9 0.15 mcg/kg/min AGGRASTAT DRIP given in lab by Babatunde Ramírez RN via Peripheral IV. Pump/Drip Flow = 17.1 ml/hr using NaCl .9 with a concentration of 12.5 mg in 250 ml. Ordered by Vinnie Chadwick. Initial Case Assessment Cardiovascular HR Rhythm NIBP Chest Pain 78 SR 127/80 0 Edema Present Skin color Skin None Normal Warm Dry Circulatory - Right Pulses Dorsalis Pedis Femoral 1 2 Scale (0,1,2,3,4,d) Circulatory - Left Pulses Dorsalis Pedis Femoral 1 2 Scale (0,1,2,3,4,d) Circulatory - Lower Extremities Color Lower Right Color Lower Left Normal Normal Neurological State Oriented to time-place- Alert Moves all extremities person Respiration - General Respiration Rate SpO2 (%) (B/min) 18 98 Chronological Log Time Study Chronological Log 8:00:00 Patient arrived via Bed. 8:04:01 Patient Name, D.O.B, / Armband Verified By R.N. 8:04:15 Consent signed by the physician and the patient and verified by the Domestic Violence Counselor staff. 8:04:16 Pre-op and post- op instructions given; patient acknowledges understanding of instructions. 8:04:17 Verbal Stimulation=2 Physical Stimulation=2 Airway=2 Respiration=2 TOTAL=8. (0=absent, 1=li mited, 2=present) 8:04:20 Presedation assessment performed by Domestic Violence Counselor RN. 8:04:34 Patient has been NPO for More than 6Hrs. 8:04:35 Skin Breakdown- 8:04:36 Patient Warmer Placed on the Table. 8:04:36 [place] Prominences Protected 8:04:39 A # 20 IV was noted in the Antecubital (left). Grade = 0 8:04:40 History and physical on the chart or being dictated. Assessment: Initial Case, HR=78 BPM, Rhythm=SR, QMRW=399/80 mmhg, Chest Pain=0, Edema=None, [place] r=Normal, Skin = Warm, Dry Right Pulses: Jhonny Ped=1, Femoral=2 Left Pulses: Jhonny Ped=1, Femoral=2 8:04:43 Lower Right Extremities: Color=Normal Lower Left Extremities: Color=Normal Neurological: State=Alert, Ox3, OROZCO Respiration: Resp=18 B/min, SpO2=98 % Vitals capture started with the following parameters, Patient=Adult, Interval=5 min, Initial Pre ozlen=741 mmHg, 8:05:05 Deflation Rate=5 mmHg, Cuff placed on Left Arm 8:05:41 HR=84 bpm, TMUW=081/80 mmhg, SpO2=97.0 %, Resp=5 B/min, Pain=0, Elda=10, Landeros=2 8:10:40 HR=82 bpm, MWVQ=577/80 mmhg, SpO2=97.0 %, Resp=10 B/min, Pain=0, Elda=10, Landeros=2 8:15:41 HR=88 bpm, AJVI=426/77 mmhg, SpO2=98.0 %, Resp=7 B/min, Pain=0, Elda=10, Landeros=2 8:17:29 Reference ECG taken 8:17:37 Bilateral groins prepped with 2% chlorhexidine, and with a 3 min. waiting time. 8:19:57 MD paged 8:20:38 HR=76 bpm, WQYK=245/77 mmhg, SpO2=97.0 %, Resp=10 B/min, Pain=0, Elda=10, Landeros=2 8:21:38 MD responded 8:25:41 HR=72 bpm, GPGR=975/67 mmhg, SpO2=95.0 %, Resp=13 B/min, Pain=0, Elda=10, Landeros=2 8:30:40 HR=79 bpm, CEJM=079/74 mmhg, SpO2=95.0 %, Resp=12 B/min, Pain=0, Elda=10, Landeros=2 8:35:41 HR=77 bpm, FCSA=990/76 mmhg, SpO2=98.0 %, Resp=11 B/min, Pain=0, Elda=10, Landeros=2 8:40:38 HR=82 bpm, HHBA=587/69 mmhg, SpO2=96.0 %, Resp=16 B/min, Pain=0, Elda=10, Landeros=2 8:45:41 HR=79 bpm, FYCJ=934/73 mmhg, SpO2=96.0 %, Resp=17 B/min, Pain=0, Elda=10, Landeros=2 8:50:31 MD arrived. 8:51:19 HR=88 bpm, CDTV=016/76 mmhg, SpO2=97.0 %, Resp=14 B/min, Pain=0, Elda=10, Landeros=2 Time Out. Correct patient, correct procedure,correct physician, ,power injector loaded or not lo aded with contrast with 8:52:26 surgical team present. Time Out Concurred by MD, individual staff and CASH REGISTER SERVICER in procedure 8:52:27 Case Start 20 mL 1% XYLOCAINE given in lab by Vinnie Chadwick in Right Groin via Subcutaneous. Ordered by Farrukh, 8:53:29 Vinnie. 8:53:36 Access site was Right Femoral Artery. 8:55:20 A SHEATH, FR4 TERUMO (10CM) FR 4 was advanced into the Fem Art (right) using the Percutaneou s technique. A JR 4.0 INFINITI CATHETER FR 4 was advanced over a wire. OMNIPAQUE, 350 MG, 150ML 150ML was use d for 8:55:30 injections. 8:55:47 The LV was manually injected with 8 cc's and visualized. OMNIPAQUE, 350 MG, 150ML 150ML used . 8:55:48 HR=85 bpm, IAGO=710/81 mmhg, SpO2=99.0 %, Resp=13 B/min, Pain=0, Elda=10, Landeros=2 Recorded Pressure: LV, HR=81, Condition=Condition 1 8:56:23 (Left Ventricle) LV 131/1/20 Recorded Pressure: LV, Ao, HR=82, Condition=Condition 1 8:56:28 (Left Ventricle) LV 131/-6/22, (Aorta) Ao 143/63/101 8:56:41 The RCA was injected and visualized at various angles. OMNIPAQUE, 350 MG, 150ML 150ML used. Recorded Pressure: Ao, HR=82, Condition=Condition 1 8:56:48 (Aorta) Ao 125/71/95 8:57:40 Catheter was removed A JL 4.0 INFINITI CATHETER FR 4 was advanced over a wire. OMNIPAQUE, 350 MG, 150ML 150ML was use d for 8:57:43 injections. 8:57:48 The LCA was injected and visualized at various angles. OMNIPAQUE, 350 MG, 150ML 150ML used. 8:59:00 Catheter was removed A SHEATH, FR6.5 PRELUDE 11CM FR 6.5 was exchanged in the Fem Art (right). This was necessary in order to 9:00:20 accomodate a larger catheter. 9:00:47 HR=79 bpm, EDZS=113/77 mmhg, SpO2=99.0 %, Resp=11 B/min, Pain=0, Elda=10, Landeros=2 9:01:07 6000 units HEPARIN given in lab by Babatunde Ramírez RN via Peripheral IV. Ordered by Vinine Chadwick. A XB 3.5 GUIDE CATHETER FR 6 was advanced over a wire. OMNIPAQUE, 350 MG, 150ML 150ML was used for 9:02:43 injections. 9:05:46 HR=83 bpm, JXLN=497/74 mmhg, SpO2=97.0 %, Resp=12 B/min, Pain=0, Elda=10, Landeros=2 9:05:52 Activated Clotting Time Drawn 9:07:38 A PRIME WIRE, VERRATA 185CM 185CM was inserted via Fem Art (right). 140 mcg/kg/min ADENOSINE DRIP given in lab by Babatunde Ramírez RN via Peripheral IV. Pump/Drip Fl ow = 798 ml/hr 9:10:15 using NaCl .9 with a concentration of 90 mg in 90 ml. Ordered by Vinnie Chadwick. 9:10:41 HR=80 bpm, FWYJ=753/84 mmhg, SpO2=98.0 %, Resp=9 B/min, Pain=0, Elda=10, Landeros=2 9:11:33 Flow Wire was was placed in the LCA. The FFR measures 0.79 percent. The IFR measures 0 Per cent. LAD 9:11:51 ADENOSINE STOPPED 9:11:59 ACT (Normal Range 90-180) = 310 An STENT, 3.0 15 INTEGRITY 3.0 15 Bare Metal Stent was inserted through a XB 3.5 GUIDE CATHETER FR 6 over a 9:14:46 PRIME WIRE, VERRATA 185CM 185CM. A STENT, 3.0 15 INTEGRITY 3.0 15 was deployed using a 30 GARCIA INDEFLATOR at 15 atmospheres for 1 2 seconds in 9:15:35 the LAD Mid. 9:15:46 HR=82 bpm, SXRF=593/79 mmhg, SpO2=98.0 %, Resp=16 B/min, Pain=0, Elda=10, Landeros=2 9:16:08 Delivery device removed 9:16:21 Wire removed 9:16:45 Catheter was removed w/o difficulty 9:19:48 In the Fem Art (right) the SHEATH, FR6.5 PRELUDE 11CM FR 6.[address] by Yogi Alba, RT(R). 9:21:18 HR=82 bpm, HXIU=084/75 mmhg, SpO2=98.0 %, Resp=13 B/min, Pain=0, Elda=10, Landeros=2 AGGRASTAT BOLUS given in lab by Babatunde Ramírez, GERSON via Peripheral IV. Pump/Drip Flow = 0 ml/hr u sing [Solution 9:21:40 Name]. Ordered by Vinnie Chadwick. 47.5 ml X 1 0.15 mcg/kg/min AGGRASTAT DRIP given in lab by Babatunde Ramírez, RN via Peripheral IV. Pump/Drip F low = 17.1 ml/hr 9:21:56 using NaCl .9 with a concentration of 12.5 mg in 250 ml. Ordered by Farrukh, Vinnie. 9:22:24 Case End 9:25:07 600 mg PLAVIX given in lab by Babatunde Ramírez RN via Oral. Ordered by Vinnie Chadwick. 9:26:23 ZNSO=717/73 mmhg 9:30:31 Vitals capture stopped. End Study - Contrast Media Used In Study Contrast Total Opened (mL) Total Used (mL) Total Wasted (mL) Omnipaque 150 100 50 End Study - Maximum Contrast Load Max Contrast Load (mL) 431.8 End Study - Radiation Exposure Fluoro Time (minutes) 2.6 End Study - Patient Disposition Complications Transferred To Interventional Outcome No Telemetry Bed successful
== END 2017-08-01 18:28 | disposition home or self-care (01) ==
LOC: HDIC 06:25 → HCAT 06:25 → HCIN 16:00 → HCAT 08-01 18:28
PROVIDERS: ATTEND Internal Medicine Interventional Cardiology
DX: I25.110 Atherosclerotic heart disease of native coronary artery with unstable angina pectoris (principal); I11.0 Hypertensive heart disease with heart failure; I50.40 Unspecified combined systolic (congestive) and diastolic (congestive) heart failure; E78.5 Hyperlipidemia, unspecified; I49.9 Cardiac arrhythmia, unspecified; I42.9 Cardiomyopathy, unspecified; Z87.891 Personal history of nicotine dependence; Z79.01 Long term (current) use of anticoagulants; Z79.82 Long term (current) use of aspirin; Z79.899 Other long term (current) drug therapy
CPT/HCPCS: 80048; 82550; 85002; 85025; 85610; 85730; 92928; 93005; 93458; 93571; C1769; C1876; C1887; C1893; J0153; J1644; J3246; J7030; J7040; 85347; Q9967

== ENCOUNTER 2017-11-27 23:25 | Inpatient (IN) | payer OTHER ==
[~2017-11-27] VITALS: Ht 175.3 cm; Wt 92.2 kg
[~2017-11-27 23:25] MED LIST changes: +AMLO10 PO; -ASPI1TAB69 PO; +ASPI81TA17 PO; -ATOR20TA15 PO; +ATOR40TA16 PO; +IOHEXOL 350 MG/ML 10 ML VIAL (for RAD DIAG) IVCONTRAST ONE; +IRBE150T49 PO; +PLAV75TA29 PO
[2017-11-27 23:34] VITALS: BP 137/79; PULSE 76; RESP 16; TEMP 98.6; O2SAT 96
[2017-11-28] MEDS ORDERED: NITROGLYCERIN 2% OINT 1 GM PACKET TOP ONE (01:30)
[2017-11-28] MEDS ORDERED: NITROGLYCERIN 0.4 MG SL 25 TABS/BTL SL ONE (01:30)
[2017-11-28] MEDS ORDERED: ONDANSETRON HCL 4 MG/2 ML VIAL IV PUSH ONE (01:30)
[2017-11-28] MEDS ORDERED: SODIUM CHLORIDE 0.9% FLUSH 10 ML FLUSH IVF PRN (01:30)
[2017-11-28 01:48] LABS: AUTOMATED NEUTROPHIL # 4.2 TH/MM3 (1.8-7.7); BASOPHIL # 0.1 TH/MM3 (0-0.2); EOSINOPHIL # 0.4 TH/MM3 (0-0.4); EOSINOPHIL % 4.8 % (0.0-4.0); HEMATOCRIT 42.4 % (39.0-51.0); HEMOGLOBIN 14.6 GM/DL (13.0-17.0); LYMPH % 26.4 % (9.0-44.0); MEAN CELL VOLUME 93.2 FL (80.0-100.0); MEAN CORPUSCULAR HGB CONC 34.3 % (32.0-36.0); MEAN PLATELET VOLUME 7.9 FL (7.0-11.0); MONO % 12.1 % (0.0-8.0); MONOCYTE # 0.9 TH/MM3 (0-0.9); NEUT % 55.7 % (16.0-70.0); PLATELET COUNT 279 TH/MM3 (150-450); RED BLOOD COUNT 4.55 MIL/MM3 (4.50-5.90); RED CELL DISTRIBUTION WIDTH 12.6 % (11.6-17.2); WHITE BLOOD COUNT 7.6 TH/MM3 (4.0-11.0)
--- NOTE | 2017-11-28 01:53 | RADRPT ---
EXAM DATE/TIME: 11/28/2017 01:31 [facility] COMPARISON: CHEST SINGLE AP, April 26, 2014, 23:25. INDICATIONS : Chest pain MEDICAL HISTORY : None. SURGICAL HISTORY : None. ENCOUNTER: Initial ACUITY: 1 day PAIN SCORE: 8/10 LOCATION: Bilateral chest FINDINGS: A single view of the chest demonstrates the lungs to be symmetrically aerated without evidence of mas s, infiltrate or effusion. The cardiomediastinal contours are unremarkable. Osseous structures are intact. CONCLUSION: No acute disease. No significant change has occurred. Edgardo Veliz MD on November 28, 2017 at 1:51 Board Certified Radiologist. This report was verified electronically.
[2017-11-28] MEDS ORDERED: DIATRIZOATE MEGLUM/DIATRIZOATE SOD 9 ML CUP ONE (02:09)
[2017-11-28 02:11] LABS: ALBUMIN 3.9 GM/DL (3.4-5.0); ALT (GPT) 27 U/L (12-78); AST (GOT) 10 U/L (15-37); BICARBONATE 26.6 MEQ/L (21.0-32.0); BLOOD UREA NITROGEN 21 MG/DL (7-18); CALCIUM 8.5 MG/DL (8.5-10.1); CHLORIDE 104 MEQ/L (98-107); CREATININE 1.09 MG/DL (0.60-1.30); GLOMERULAR FILTRATION RATE 69 ML/MIN (>89); GLUCOSE,RANDOM 123 MG/DL (74-106); LIPASE 118 U/L (73-393); MAGNESIUM 2.3 MG/DL (1.5-2.5); PROTHROMBIN TIME - PATIENT 10.2 SEC (9.8-11.6); SODIUM (NA) 138 MEQ/L (136-145)
[2017-11-28 02:14] LABS: D-DIMER LESS THAN 0.19 MG/L FEU (0.00-0.50)
[2017-11-28 02:15] LABS: ALKALINE PHOSPHATASE 73 U/L (45-117); TOTAL BILIRUBIN ADULT 0.3 MG/DL (0.2-1.0); TOTAL PROTEIN 7.8 GM/DL (6.4-8.2); TROPONIN I LESS THAN 0.02 NG/ML (0.02-0.05)
[2017-11-28 03:29] VITALS: BP 101/56; PULSE 64; RESP 18; O2SAT 94
[2017-11-28] MEDS ORDERED: IOHEXOL 350 MG/ML 10 ML VIAL (for RAD DIAG) IVCONTRAST ONE (03:44)
--- NOTE | 2017-11-28 03:50 | RADRPT ---
EXAM DATE/TIME: 11/28/2017 03:37 [facility] COMPARISON: No previous studies available for comparison. INDICATIONS : Abdomen pain. IV CONTRAST: 100 cc Omnipaque 350 (iohexol) IV ORAL CONTRAST: Prescribed oral contrast ingested. RADIATION DOSE: 14.90 CTDIvol (mGy) MEDICAL HISTORY : Cardiovascular disease. Hypertension. Gastroesophageal reflux disease. SURGICAL HISTORY : Cardiac stents. ENCOUNTER: Initial ACUITY: 1 day PAIN SCALE: 5/10 LOCATION: abdomen TECHNIQUE: Volumetric scanning of the abdomen and pelvis was performed. Using automated exposure control and ad justment of the mA and/or kV according to patient size, radiation dose was kept as low as reasonably achievable to obtain optimal diagnostic quality images. DICOM format image data is available electro nically for review and comparison. FINDINGS: LOWER LUNGS: The visualized lower lungs are clear. LIVER: Homogeneous density without lesion. There is no dilation of the biliary tree. No calcified gallston es. SPLEEN: Normal size without lesion. PANCREAS: Within normal limits. KIDNEYS: Normal in size and shape. There is no mass, stone or hydronephrosis. ADRENAL GLANDS: Within normal limits. VASCULAR: There is no aortic aneurysm. BOWEL/MESENTERY: The stomach, small bowel, and colon demonstrate no acute abnormality. There is no free intraperitone al air or fluid. The appendix is unremarkable. ABDOMINAL WALL: Within normal limits. RETROPERITONEUM: There is no lymphadenopathy. BLADDER: No wall thickening or mass. REPRODUCTIVE: Within normal limits. INGUINAL: There is no lymphadenopathy or hernia. MUSCULOSKELETAL: Within normal limits for patient age. CONCLUSION: Unremarkable examination. Edgardo Veliz MD on November 28, 2017 at 3:45 Board Certified Radiologist. This report was verified electronically.
[2017-11-28] MEDS ORDERED: LIDOCAINE VISCOUS 2% SOLN 15 ML UDC SWISH-SWAL ONE (05:00)
[2017-11-28] MEDS ORDERED: ALUMINUM/MAGNESIUM/SIMETH 30 ML CUP PO ONE (05:00)
[2017-11-28] MEDS ORDERED: SODIUM CHLORIDE 0.9% FLUSH 10 ML FLUSH IV FLUSH PRN (07:00)
--- NOTE | 2017-11-28 07:02 | PD ---
HPI . Chest pain Chief Complaint: Cardiac Complaint Time Seen by Provider: 00:50 Travel History International Travel<30 days: No Contact w/Intl Traveler<30days: No Traveled to known affect area: No History of Present Illness HPI 62-year-old male complains of substernal chest pain nonradiating associated with shortness of breath yesterday. Pain described as heavy and dull. Patient has had similar illnesses pain over the past several weeks. Patient is noted somewhat decreased exercise tolerance of late. Denies any fevers chills sweats , cough, leg pain or swelling, sedentary period confined travel. PFSH Past Medical History Narrative Medical Past medical history reviewed Blood Disorders: No Cancer: No Cardiovascular Problems: Yes (STENTS PLACED ) Chest Pain: Yes Diabetes: No Diminished Hearing: No Endocrine: No Gastrointestinal Disorders: No GERD: Yes Glaucoma: No Genitourinary: No Hepatitis: No Hiatal Hernia: No Hypertension: Yes Immune Disorder: No Musculoskeletal: No Neurologic: No Psychiatric: No Reproductive: No Respiratory: Yes (SOB) Integumentary: No Myocardial Infarction: Yes (december 2012) Thyroid Disease: No Past Surgical History Cardiac Surgery: Yes (STENTS ) Coronary Stent: Yes Thoracic Surgery: No Social History Alcohol Use: No Tobacco Use: No (quit in dec 2013) Substance Use: No Allergies-Medications (Allergen,Severity, Reaction): Coded Allergies: No Known Allergies (Unverified , 03/23/17) Reported Meds & Prescriptions Reported Meds & Active Scripts Active Reported Plavix (Clopidogrel Bisulfate) 75 Mg Tab 75 Mg PO DAILY Norvasc (Amlodipine Besylate) 10 Mg Tab 10 Mg PO DAILY Atorvastatin (Atorvastatin Calcium) 40 Mg Tab 40 Mg PO HS Avapro (Irbesartan) 150 Mg Tab 150 Mg PO DAILY Aspirin DR (Aspirin) 81 Mg Tabdr 81 Mg PO DAILY Carvedilol 3.125 Mg Tab 3.125 Mg PO BID Narrative Medication Allergies and medications reviewed Review of Systems Except as stated in HPI: all other systems reviewed are Neg General / Constitutional: No: Fever Eyes: No: Visual changes HENT: No: Headaches Cardiovascular: Positive: Chest Pain or Discomfort Respiratory: Positive: Shortness of Breath Gastrointestinal: No: Abdominal Pain Genitourinary: No: Dysuria Musculoskeletal: No: Pain Skin: No Rash Neurologic: No: Weakness Psychiatric: No: Depression Endocrine: No: Polydipsia Hematologic/Lymphatic: No: Easy Bruising Physical Exam Narrative GENERAL: Awake alert oriented 3 no acute distress SKIN: Warm and dry. Is normal no diaphoresis cyanosis or pallor HEAD: Atraumatic. Normocephalic. EYES: Pupils equal and round. No scleral icterus. No injection or drainage. ENT: No nasal bleeding or discharge. Mucous membranes pink and moist. NECK: Trachea midline. No JVD. Supple full range of motion CARDIOVASCULAR: Regular rate and rhythm. S1-S2 no murmurs or gallops RESPIRATORY: No accessory muscle use. Clear to auscultation. Breath sounds equal bilaterally. GASTROINTESTINAL: Abdomen soft, non-tender, nondistended. Hepatic and splenic margins not palpable. MUSCULOSKELETAL: Extremities without clubbing, cyanosis, or edema. No obvious deformities. NEUROLOGICAL: Awake and alert. No obvious cranial nerve deficits. Motor grossly within normal limits. Five out of 5 muscle strength in the arms and legs. Normal speech. PSYCHIATRIC: Appropriate mood and affect; insight and judgment normal. Data Data Last Documented VS Vital Signs Date Time Temp Pulse Resp B/P (MAP) Pulse Ox O2 Delivery O2 Flow Rate FiO2 11/28/17 03:29 64 18 101/56 (71) 94 11/28/17 01:27 Room Air 11/27/17 23:34 98.6 Orders Orders Electrocardiogram (11/28/17:19) B-Type Natriuretic Peptide (11/28/17:19) Ckmb (Isoenzyme) Profile (11/28/17:19) Complete Blood Count With Diff (11/28/17:) Comprehensive Metabolic Panel (11/28/17:19) D-Dimer (11/28/17:19) Magnesium (Mg) (11/28/17:19) Prothrombin Time / Inr (Pt) (11/28/17:19) Act Partial Throm Time (Ptt) (11/28/17:19) Troponin I (11/28/17:) Chest, Single Ap (11/28/17:19) Ecg Monitoring (11/28/17:19) Bilateral Bp Monitoring (11/28/17:19) Iv Access Insert/Monitor (11/28/17:19) Oximetry (11/28/17:) Oxygen Administration (1/13/18 01:19) Nitroglycerin 2% Oint (Nitroglycerin 2% (11/28/17 01:30) Sodium Chloride 0.9% Flush (Ns Flush) (11/28/17 01:30) Nitroglycerin Sl (Nitrostat Sl) (11/28/17 01:30) Ct Abd/Pel W Iv Contrast(Rout) (11/28/17 ) Lipase (11/28/17 01:19) Ondansetron Inj (Zofran Inj) (11/28/17 01:30) Oral Contrast - Adult (11/28/17 01:25) Diatrizoate Liq ( Gastroview Liq) (11/28/17 02:09) Iohexol 350 Inj (Omnipaque 350 Inj) (11/28/17 03:44) Troponin I (11/28/17 04:53) Al-Mag Hy-Si 40-40-4 Mg/Ml Liq (Mag-Al P (11/28/17 05:00) Lidocaine 2% Viscous (Xylocaine 2% Visco (11/28/17 05:00) Activity Bed Rest With Brp (11/28/17 06:58) Vital Signs (Adult) Q4H (11/28/17 06:58) Cardiac Rhythm .As Directed (11/28/17 06:58) Notify Dr: Other .PRN (11/28/17 06:58) Notify Parameters (11/28/17 06:58) Resp Oxygen Nasal Cannula (11/28/17 ) Ckmb (Isoenzyme) Profile (11/28/17 06:58) Ckmb (Isoenzyme) Profile (11/28/17 09:58) Troponin I (11/28/17 06:58) Troponin I (11/28/17 09:58) Electrocardiogram (11/28/17 06:58) Electrocardiogram (11/28/17 09:58) ^ Obtain (11/28/17 06:58) Sodium Chloride 0.9% Flush (Ns Flush) (11/28/17 07:00) Sodium Chloride 0.9% Flush (Ns Flush) (11/28/17 09:00) Avionics Test Technician / Telemetry ASHISH.Q8H (11/28/17 06:58) Labs Laboratory Tests Test 1/13/18 01:34 11/28/17 05:08 White Blood Count 7.6 TH/MM3 Red Blood Count 4.55 MIL/MM3 Hemoglobin 14.6 GM/DL Hematocrit 42.4 % Mean Corpuscular Volume 93.2 FL Mean Corpuscular Hemoglobin 32.0 PG Mean Corpuscular Hemoglobin Concent 34.3 % Red Cell Distribution Width 12.6 % Platelet Count 279 TH/MM3 Mean Platelet Volume 7.9 FL Neutrophils (%) (Auto) 55.7 % Lymphocytes (%) (Auto) 26.4 % Monocytes (%) (Auto) 12.1 % Eosinophils (%) (Auto) 4.8 % Basophils (%) (Auto) 1.0 % Neutrophils # (Auto) 4.2 TH/MM3 Lymphocytes # (Auto) 2.0 TH/MM3 Monocytes # (Auto) 0.9 TH/MM3 Eosinophils # (Auto) 0.4 TH/MM3 Basophils # (Auto) 0.1 TH/MM3 CBC Comment DIFF FINAL Differential Comment Prothrombin Time 10.2 SEC Prothromb Time International Ratio 1.0 RATIO Activated Partial Thromboplast Time 25.7 SEC D-Dimer Quantitative (PE/DVT) LESS THAN 0.19 MG/L FEU Blood Urea Nitrogen 21 MG/DL Creatinine 1.09 MG/DL Random Glucose 123 MG/DL Total Protein 7.8 GM/DL Albumin 3.9 GM/DL Calcium Level 8.5 MG/DL Magnesium Level 2.3 MG/DL Alkaline Phosphatase 73 U/L Aspartate Amino Transf (AST/SGOT) 10 U/L Alanine Aminotransferase (ALT/SGPT) 27 U/L Total Bilirubin 0.3 MG/DL Sodium Level 138 MEQ/L Potassium Level 4.3 MEQ/L Chloride Level 104 MEQ/L Carbon Dioxide Level 26.6 MEQ/L Anion Gap 7 MEQ/L Estimat Glomerular Filtration Rate 69 ML/MIN Total Creatine Kinase 60 U/L Troponin I LESS THAN 0.02 NG/ML LESS THAN 0.02 NG/ML B-Type Natriuretic Peptide 5 PG/ML Lipase 118 U/L [facility] Medical Decision Making Medical Screen Exam Complete: Yes Emergency Medical Condition: Yes Medical Record Reviewed: Yes Differential Diagnosis Chest pain, unstable angina, atypical chest pain Narrative Course EKG normal sinus rhythm at 69 bpm, nonischemic, intervals normal, mild IVCD Chest x-ray no infiltrates no pneumothorax Laboratory examination reviewed, no significant abnormalities. Patient has history of chest pain and onset unstable angina, care plan developed for chest pain center admission, cardiology evaluation. Diagnosis Primary Impression: Chest pain Qualified Codes: R07.89 - Other chest pain Admitting Information Admitting Physician Requests: Ming Dale MD Nov 28, 2017 07:02
[2017-11-28 07:40] VITALS: BP 130/73; PULSE 73; RESP 17; O2SAT 99
[2017-11-28] MEDS ORDERED: ATOR20TA15 PO (07:44)
[2017-11-28] MEDS: SODIUM CHLORIDE 0.9% FLUSH 10 ML FLUSH IV FLUSH SCH ×2 (09:02→23:21)
[2017-11-28 10:06] LABS: TROPONIN I LESS THAN 0.02 NG/ML (0.02-0.05)
[2017-11-28] MEDS ORDERED: CLOPIDOGREL 75 MG TAB PO ONE (12:00)
[2017-11-28] MEDS ORDERED: ASPIRIN EC 81 MG TABEC PO ONE (12:00)
--- NOTE | 2017-11-28 12:37 | MB ---
cc: STARR CRAVEN M.D. DATE OF CONSULTATION: 11/28/2017 REASON FOR CONSULTATION: Mr. Roper is a very pleasant 62-year gentleman with history of coronary artery disease, status post multiple PCI of the LAD recently he had PCI I believe in July 2017. He has had chest pain since then, he did do a plain treadmill test in my office which was negative of ischemia. He came to my office last week complaining of chest pain. I advised him to go to the emergency room if it lasted more then 15 minutes and I also advised him to do a heart catheterization. The patient is undecided. He presented to the ER yesterday with complaints of substernal chest pain non radiating, associated with shortness of breath. Described as heavy and dull. This has been occurring for several weeks prior to admission. The patient denies any fever, chills, cough, GI or bleeding, paroxysmal nocturnal dyspnea, orthopnea, syncope or dizziness. PAST MEDICAL HISTORY: As per history of present illness. SOCIAL HISTORY Denies alcohol use, quit smoking in December 2013. ALLERGIES NONE. MEDICATIONS PRIOR TO ADMISSION 1. Plavix 75 daily. 2. Norvasc 10 mg daily. 3. Atorvastatin 40 mg at hs. 4. Avapro 120 mg daily 5. aspirin 81 mg daily 6. Carvedilol 3.25 b.i.d. MEDICATIONS In the hospital currently, none. He is in the chest pain center being followed by Dr. Merida. PHYSICAL EXAMINATION: Blood pressure 130/70, Pulse 73, respiratory rate 17, temperature 98.6. IN GENERAL: He is alert and oriented times three in no acute distress. NECK: The neck is supple, no jugular venous distention, no bruit. CARDIOVASCULAR SYSTEM: S1. S2, negative for murmurs, rubs, or gallops. RESPIRATORY: Clear bilaterally. ABDOMEN: Soft, nontender, nondistended with positive bowel sounds. EXTREMITIES: No lower extremity edema noted. TESTING: His left heart catheterization on 07/31/2017. EF is 50%. LVDP was 12. Right coronary artery had a 60% mid to distal stenosis. Left anterior descending stents were widely patent. The first diagonal artery had a medium-sized vessel with 50% stenosis. FFR was performed of the proximal LAD. Due to a 70% stenosis in the mid segment. FFR was 0.79 within 40 seconds of adenosine infusion. A 3/15 very stent was then placed one inflation atmospheres 20 seconds. LABORATORY DATA White count 7.6. Hemoglobin 14.6, hematocrit 42.4, platelet count 279. Troponin less then 0.02 x3. Sodium 38, potassium 4.3, chloride 104. BUN 7,BUN 21, creatinine 1.09, glucose 123, INR is 1.0. Electrocardiogram; He has a normal sinus rhythm at 69 beats per minute, anteroseptal Q-waves, late R-wave transition. Chest x-ray No acute disease. No significant changes occurred. CT ABDOMEN AND PELVIS Unremarkable examination. FINAL DIAGNOSIS 1. Unstable angina 2. [place] [employer] class IV angina 3. Coronary artery disease. 4. Hyperglycemia. DISCUSSION The patient presents 3 months status post PCI bare metal stent of proximal LAD with recurrent angina. He has a high pretest probability for significant obstructive coronary disease accounting for his symptoms. He also has a 60% mid to distal right coronary artery as detailed above. Therefore I do think left heart catheterization is medically necessary. I recommend restart the patient's aspirin, Plavix and Lipitor 40 at bedtime I have discussed the case with Dr. Merida in the ER and chest pain center. MD VICKY Us/timothy /11:42 AM /11:58 AM
--- NOTE | 2017-11-28 13:28 | HHI.HP ---
[facility] Primary Care Physician Dr. Chadwick Chief Complaint Chest pain History of Present Illness 62-year-old male with history of coronary artery disease, cardiac stents, hypertension, and GERD presents to emergency room for further evaluation of chest pain. Onset 4 days ago. Characterized as heaviness. Location substernal. Severity moderate, waxing and waning in intensity. No radiation. No associated symptoms of nausea, vomiting, or diaphoresis. Last evening experience associated symptom of dyspnea, therefore can the ER for further evaluation. Precipitating factors seem occur more often after eating, although not consistent. No known relieving factors. Currently reports "mild" discomfort pointing to epigastric area. Follows with Dr. Chadwick. In fact, reports normal treadmill stress testing 2 weeks ago. Testing completed due to intermittent chest discomfort. State Dr. Chadwick advised him to return to ER for any further chest discomfort a couple weeks ago for possible cardiac catheterization. Review of Systems General: No fatigue,weakness, fever, chills, recent illness, or change in appetite. Has been in his general state of health. HEENT: No CORONADO, no vision changes, no nasal congestion or drainage, no dysphasia CV: As stated above. Denies any current chest discomfort. RESP: No SOB, cough, wheeze, or recent URI. Former smoker. GI: No nausea, vomiting, bowel changes, diarrhea, constipation, pain, distention , melena, or blood in the stool. No unintentional weight gain or weight loss. Denies dysphasia, ingestion, or burning feeling. : No dysuria, urgency, frequency EXT: No lower leg edema, no paraesthesias MS: No discomfort or change in ROM NEURO: No change in memory, LOC, motor/sensory deficits PSYCH: No anxiety or depression SKIN: No rashes, no concerning lesions Past Family Social History Allergies: Coded Allergies: No Known Allergies (Unverified , 03/23/17) Past Medical History Coronary artery disease, GERD, cardiac stent, hypertension Past Surgical History None Reported Medications Reported Meds & Active Scripts Active Reported Atorvastatin (Atorvastatin Calcium) 20 Mg Tab 20 Mg PO HS Plavix (Clopidogrel Bisulfate) 75 Mg Tab 75 Mg PO DAILY Norvasc (Amlodipine Besylate) 10 Mg Tab 10 Mg PO DAILY Avapro (Irbesartan) 150 Mg Tab 150 Mg PO DAILY Aspirin DR (Aspirin) 81 Mg Tabdr 81 Mg PO DAILY Carvedilol 3.125 Mg Tab 3.125 Mg PO BID Metformin 500mg QD Active Ordered Medications Current Medications Medications (Trade) Dose Ordered Sig/Jenn Route Start Time Stop Time Status Last Admin (NS Flush) 2 ml UNSCH PRN IVF 11/28/17 01:30 (NS Flush) 2 ml UNSCH PRN IV FLUSH 11/28/17 07:00 (NS Flush) 2 ml BID IV FLUSH 11/28/17 09:00 11/28/17 09:02 (Plavix) 75 mg DAILY PO 11/29/17 09:00 (Ecotrin Ec) 162 mg DAILY PO 11/29/17 09:00 (Lipitor) 40 mg HS PO 11/28/17 21:00 Family History Noncontributory for early onset cardiovascular disease. Endorses strong family history of type 2 diabetes. Social History Known coronary artery disease and hypertension. Appropriately taking statin therapy for known CAD. Recently started on metformin reportedly due to strong family history of diabetes, denies being told he is a diabetic or "prediabetic. " Former smoker. Quit 2012. Began smoking age 15. Smoked as much as 3-4 packs/ daily. Denies any alcohol or illegal drug use. Single. Works as a cross country truck driver. Endorses an active lifestyle Past cardiac testing Exercise stress testing completed Dr. Chadwick's office 2 weeks ago, reported to be normal 07/31/17 Cardiac catheterization (Dr. Chadwick) Conclusions 1. Unstable angina. New cardiac symptoms of chest pain at rest; [place] Cardiovascular society Class IV. 2. Coronary artery disease. Culprit 70% stenosis in mid LAD with a FFR of 0.79 after 40 seconds of adenosine infusion as detailed above. 3. Otherwise moderate disease in mid right coronary artery disease and ostial first diagonal artery as detailed above. 4. Low and normal LV systolic function, EF of 50%. The anterior wall is subtly to mildly hypokinetic. 5. Normal LV pressures (130/10-12). 6. Successful direct PCI with bare-metal stent of the mid LAD from 70% to 0% with DA-3 flow. 04/27/14 Cardiac catheterization (Dr. Chadwick) Conclusions 1. Angiographically minimal to mild left main disease, mild LAD diagonal disease as detailed above. 2. Widely patent stent to the proximal left anterior descending. 3. Preserved left ventricular systolic function, ejection fraction of 50%. Mild to moderate hypokinesis at the very distal anterior apical wall. 4. Normal left ventricular pressures (123/6/10). 5. Emend continue optimal medical therapy which the patient has been on since December. Also note, the patient has had a plaque regression in the right coronary artery from 70% to 0% with DA-3 flow. Physical Exam Vital Signs Vital Signs Date Time Temp Pulse Resp B/P (MAP) Pulse Ox O2 Delivery O2 Flow Rate FiO2 11/28/17 07:40 73 17 130/73 (92) 99 Room Air 11/28/17 03:29 64 18 101/56 (71) 94 11/28/17 01:27 96 Room Air 11/27/17 23:34 98.6 76 16 137/79 (98) 96 Physical Exam GENERAL: Alert WN, WD, NAD, pleasant, male HEAD: NC, AT CV: RRR, without murmur, rub, gallop, no JVD, S1-S2 no S3-S4. Chest wall nontender with palpation. RESP: Clear lungs throughout bilateral, no crackles, wheeze, rhonchi, symmetrical chest rise, nonlabored, able to speak in full sentences ABD: Soft, NT, ND, no masses, positive bowel tones EXT: Pulses +24, no dependent edema MS: Normal tone 4 extremities, no obvious deformities, full range of motion NEURO: CN II through CN XII grossly intact, motor strength PSYCH: A+O 3, pleasant affect, appropriate speech, mood, insight and judgment SKIN: Normal turgor, normal texture, no lesions, no rashes, even hair distribution Laboratory Laboratory Tests Test 11/28/17 01:34 11/28/17 05:08 11/28/17 09:10 White Blood Count 7.6 Red Blood Count 4.55 Hemoglobin 14.6 Hematocrit 42.4 Mean Corpuscular Volume 93.2 Mean Corpuscular Hemoglobin 32.0 Mean Corpuscular Hemoglobin Concent 34.3 Red Cell Distribution Width 12.6 Platelet Count 279 Mean Platelet Volume 7.9 Neutrophils (%) (Auto) 55.7 Lymphocytes (%) (Auto) 26.4 Monocytes (%) (Auto) 12.1 Eosinophils (%) (Auto) 4.8 Basophils (%) (Auto) 1.0 Neutrophils # (Auto) 4.2 Lymphocytes # (Auto) 2.0 Monocytes # (Auto) 0.9 Eosinophils # (Auto) 0.4 Basophils # (Auto) 0.1 CBC Comment DIFF FINAL Differential Comment Prothrombin Time 10.2 Prothromb Time International Ratio 1.0 Activated Partial Thromboplast Time 25.7 D-Dimer Quantitative (PE/DVT) LESS THAN 0.19 Blood Urea Nitrogen 21 Creatinine 1.09 Random Glucose 123 Total Protein 7.8 Albumin 3.9 Calcium Level 8.5 Magnesium Level 2.3 Alkaline Phosphatase 73 Aspartate Amino Transf (AST/SGOT) 10 Alanine Aminotransferase (ALT/SGPT) 27 Total Bilirubin 0.3 Sodium Level 138 Potassium Level 4.3 Chloride Level 104 Carbon Dioxide Level 26.6 Anion Gap 7 Estimat Glomerular Filtration Rate 69 Total Creatine Kinase 60 63 Troponin I LESS THAN 0.02 LESS THAN 0.02 LESS THAN 0.02 B-Type Natriuretic Peptide 5 Lipase 118 Result Diagram: 11/28/17 0134 11/28/17 013 Imaging Last 48 hours Impressions Chest X-Ray 11/28/17 0119 Signed Impressions: Service Date/Time: Tuesday, November 28, 2017 01:31 - CONCLUSION: No acute disease. No significant change has occurred. Edgardo Veliz MD Abdomen/Pelvis CT 11/28/17 0000 Signed Impressions: Service Date/Time: Tuesday, November 28, 2017 03:37 - CONCLUSION: Unremarkable examination. Edgardo Veliz MD Course EKG Normal sinus rhythm, normal axis, no st t segment changes, Q waves anterolaterally Caprini VTE Risk Assessment Caprini VTE Risk Assessment: Mod/High Risk (score >= 2) Caprini Risk Assessment Model Point Value = 1 Point Value = 2 Point Value = 3 Point Value = 5 Age 41-60 Minor surgery BMI > 25 kg/m2 Swollen legs Varicose veins or History of unexplained or recurrent spontaneous Oral contraceptives or hormone replacement Sepsis (< 1 month) Serious lung disease, including pneumonia (< 1 month) Abnormal pulmonary function Acute myocardial infarction Congestive heart failure (< 1 month) History of inflammatory bowel disease Medical patient at bed rest Age 61-74 Arthroscopic surgery Major open surgery (> 45 min) Laparoscopic surgery (> 45 min) Malignancy Confined to bed (> 72 hours) Immobilizing plaster cast Central venous access Age >= 75 History of VTE Family history of VTE Factor V Leiden Prothrombin [id number] Lupus anticoagulant Anticardiolipin antibodies Elevated serum homocysteine Heparin-induced thrombocytopenia Other congenital or acquired thrombophilia Stroke (< 1 month) Elective arthroplasty Hip, pelvis, or leg fracture Acute spinal cord injury (< 1 month) Prophylaxis Regimen Total Risk Factor Score Risk Level Prophylaxis Regimen 0-1 Low Early ambulation 2 Moderate Order ONE of the following: *Sequential Compression Device (SCD) *Heparin 5000 units SQ BID 3-4 Higher Order ONE of the following medications: *Heparin 5000 units SQ TID *Enoxaparin/Lovenox 40 mg SQ daily (WT < 150 kg, CrCl > 30 mL/min) *Enoxaparin/Lovenox 30 mg SQ daily (WT < 150 kg, CrCl > 10-29 mL/min) *Enoxaparin/Lovenox 30 mg SQ BID (WT < 150 kg, CrCl > 30 mL/min) AND/OR *Sequential Compression Device (SCD) 5 or more Highest Order ONE of the following medications: *Heparin 5000 units SQ TID (Preferred with Epidurals) *Enoxaparin/Lovenox 40 mg SQ daily (WT < 150 kg, CrCl > 30 mL/min) *Enoxaparin/Lovenox 30 mg SQ daily (WT < 150 kg, CrCl > 10-29 mL/min) *Enoxaparin/Lovenox 30 mg SQ BID (WT < 150 kg, CrCl > 30 mL/min) AND *Sequential Compression Device (SCD) Assessment and Plan Assessment and Plan #1 Chest pain-admitted to chest pain center. Dr. Merida spoke with Dr. Chadwick , made aware of patient's admittance to chest pain center. Dr. Chadwick knows patient well and plans on taking patient for repeat cardiac catheterization Thursday due to continued intermittent chest discomfort. Will continue serial cardiac protocol and place consult to hospitalist for medical management. Patient spoke with Dr. Chadwick in ED and aware of planned catheterization and agreeable to plan of care. #2 History of CAD-continue Coreg, Plavix, aspirin, and atorvastatin #3 Hypertension-continue irbesartan and amlodipine [address] Grey who agrees to take patient on her service. Radha Fernando Nov 28, 2017 13:28
[2017-11-28] MEDS: PANTOPRAZOLE SOD 40 MG DELAYED RELEASE TAB PO SCH (14:29)
[2017-11-28 14:43] VITALS: BP 142/79; PULSE 73; RESP 15; O2SAT 99
[2017-11-28 15:58] VITALS: BP 127/80; PULSE 76; RESP 20; TEMP 98; O2SAT 94
--- NOTE | 2017-11-28 16:43 | EKG ---
Date Performed: 11/28/2017 Time Performed: 03:06:15 PTAGE: 62 years EKG: Sinus rhythm POOR R WAVE PROGRESSION, CANNOT EXCLUDE OLD ANTEROSEPTAL HI Since previous tracing, no significant c sabrinae noted ABNORMAL ECG PREVIOUS TRACING : 08/01/2017 06.37 DOCTOR: Ever Eldridge Interpretating Date/Time 11/28/2017 16:42:27
[2017-11-28 16:52] VITALS: PULSE 73
[2017-11-28 20:26] VITALS: BP 131/80; PULSE 75; RESP 17; TEMP 98.5; O2SAT 9
[2017-11-28] MEDS ORDERED: ATORVASTATIN 40 MG TAB PO SCH (21:00)
[2017-11-28] MEDS: CARVEDILOL 3.125 MG TAB PO SCH (23:21)
[2017-11-28] MEDS: ATORVASTATIN 20 MG TAB PO SCH (23:22)
[2017-11-29] VITALS (10 sets, daily range): BP systolic 105–140; BP diastolic 62–76; PULSE 62–82; RESP 18–22; TEMP 97.6–98.7; O2SAT 94–97
[2017-11-29] MEDS: NITROGLYCERIN 0.4 MG SL 25 TABS/BTL SL PRN ×2 (00:03→00:14)
[2017-11-29 00:56] LABS: TROPONIN I LESS THAN 0.02 NG/ML (0.02-0.05)
[2017-11-29] MEDS ORDERED: MORPHINE SULFATE 2 MG/ML INJ IV PUSH ONE (08:00)
[2017-11-29] MEDS: NITROGLYCERIN 2% OINT 1 GM PACKET TOPICAL SCH ×3 (08:00→21:42)
[2017-11-29] MEDS ORDERED: MORPHINE SULFATE 2 MG/ML INJ IV PUSH PRN (08:00)
[2017-11-29 09:08] LABS: TROPONIN I LESS THAN 0.02 NG/ML (0.02-0.05)
[2017-11-29] MEDS: CARVEDILOL 3.125 MG TAB PO SCH ×2 (09:57→21:42)
[2017-11-29] MEDS: PANTOPRAZOLE SOD 40 MG DELAYED RELEASE TAB PO SCH (09:57)
[2017-11-29] MEDS: LOSARTAN 50 MG TAB PO SCH (09:57)
[2017-11-29] MEDS: CLOPIDOGREL 75 MG TAB PO SCH (09:57)
[2017-11-29] MEDS: ASPIRIN EC 81 MG TABEC PO SCH (09:58)
[2017-11-29] MEDS: SODIUM CHLORIDE 0.9% FLUSH 10 ML FLUSH IV FLUSH SCH ×2 (09:58→21:00)
[2017-11-29] MEDS ORDERED: MAGNESIUM HYDROXIDE SUSP 30 ML CUP PO ONE (10:15)
[2017-11-29] MEDS ORDERED: SENNOSIDES 8.6 MG TAB PO PRN (10:15)
[2017-11-29] MEDS ORDERED: MAGNESIUM HYDROXIDE SUSP 30 ML CUP PO PRN (10:15)
[2017-11-29] MEDS ORDERED: BISACODYL 10 MG SUPP RECTAL PRN (10:15)
--- NOTE | 2017-11-29 11:10 | PD.CARD.PN ---
Subjective Subjective Remarks still having chest pain but appears comfortable in nad Objective Medications Current Medications Medications (Trade) Dose Ordered Sig/Jenn Route Start Time Stop Time Status Last Admin (NS Flush) 2 ml UNSCH PRN IV FLUSH 11/28/17 07:00 (NS Flush) 2 ml BID IV FLUSH 11/28/17 09:00 11/29/17 09:58 (Plavix) 75 mg DAILY PO 11/29/17 09:00 11/29/17 09:57 (Ecotrin Ec) 162 mg DAILY PO 11/29/17 09:00 11/29/17 09:58 (Norvasc) 10 mg DAILY PO 11/29/17 09:00 11/29/17 09:57 (Lipitor) 20 mg HS PO 11/28/17 21:00 11/28/17 23:22 (Coreg) 3.125 mg BID PO 11/28/17 21:00 11/29/17 09:57 (Cozaar) 50 mg DAILY PO 11/29/17 09:00 11/29/17 09:57 (Protonix) 40 mg DAILY PO 11/28/17 14:00 11/29/17 09:57 (Nitrostat Sl) 0.4 mg Q5M PRN SL 11/28/17 23:45 11/29/17 00:14 (Nitroglycerin 2% Oint) 1 inch Q6H TOPICAL 11/29/17 08:00 11/29/17 08:00 (Morphine Inj) 2 mg Q3H PRN IV PUSH 11/29/17 08:00 (Britta-Colace) 1 tab BID PO 11/29/17 21:00 (Milk Of Magnesia Liq) 30 ml Q12H PRN PO 11/29/17 10:15 (Senokot) 17.2 mg Q12H PRN PO 11/29/17 10:15 (Dulcolax Supp) 10 mg DAILY PRN RECTAL 11/29/17 10:15 Vital Signs / I&O Vital Signs Date Time Temp Pulse Resp B/P (MAP) Pulse Ox O2 Delivery O2 Flow Rate FiO2 11/29/17 09:55 70 135/76 (95) 11/29/17 08:58 94 21 11/29/17 07:58 97.8 76 18 116/67 (83) 95 11/29/17 04:19 98.4 72 18 140/74 (96) 94 11/29/17 03:02 21 11/29/17 02:47 21 11/28/17 20:26 98.5 75 17 131/80 (97) 9 11/28/17 16:52 73 11/28/17 15:58 98.0 76 20 127/80 (96) 94 11/28/17 14:43 73 15 142/79 (100) 99 Room Air Physical Exam GENERAL: SKIN: Warm and dry. HEAD: Normocephalic. EYES: No scleral icterus. No injection or drainage. NECK: Supple, trachea midline. No JVD or lymphadenopathy. CARDIOVASCULAR: Regular rate and rhythm without murmurs, gallops, or rubs. RESPIRATORY: Breath sounds equal bilaterally. No accessory muscle use. GASTROINTESTINAL: Abdomen soft, non-tender, nondistended. MUSCULOSKELETAL: No cyanosis, or edema. BACK: Nontender without obvious deformity. No CVA tenderness. Laboratory Laboratory Tests Test 11/28/17 23:45 11/29/17 08:02 Total Creatine Kinase 68 U/L 56 U/L Troponin I LESS THAN 0.02 NG/ML LESS THAN 0.02 NG/ML Assessment and Plan Problem List: (1) Unstable angina ICD Codes: I20.0 - Unstable angina (2) CAD (coronary artery disease) ICD Codes: I25.10 - Atherosclerotic heart disease of [place] coronary artery without angina pectoris (3) Chest pain ICD Codes: R07.9 - Chest pain, unspecified Status: Acute Assessment and Plan 1.) CAD - [facility] is medically necessary due to new onset chest pain @ [facility], [facility], [place], ccs class 4 angina, h/o cad, s/p pci 07/29/17; i explained to the patient and his sister that the risk of cath/pci is 5-10% chance of , mi, cva, need for cabg/surgery/dialysis/blood transfusion, bleeding, infection, anaphylaxis and arrythmia; he and his sister understand and the patient consents to proceed. continue aspirin, plavix, lipitor, coreg; plan d/w Dr Merida Problem Qualifiers (1) Chest pain: Qualified Codes: R07.89 - Other chest pain Vinnie Chadwick MD Nov 29, 2017 11:10
--- NOTE | 2017-11-29 11:54 | HHI.PR ---
Subjective Remarks Very pleasant, in bed appears sleepy. Says he still experienced chest andrade overnight. Started on nitro paste says pain is improving. No sob, palpitations, diaphoresis, nausea. No n/v/d. C/o constipation. no fever or chills. No cough. Objective Vitals Vital Signs Date Time Temp Pulse Resp B/P (MAP) Pulse Ox O2 Delivery O2 Flow Rate FiO2 11/29/17 09:55 70 135/76 (95) 11/29/17 08:58 94 21 11/29/17 07:58 97.8 76 18 116/67 (83) 95 11/29/17 04:19 98.4 72 18 140/74 (96) 94 11/29/17 03:02 21 11/29/17 02:47 21 11/28/17 20:26 98.5 75 17 131/80 (97) 9 11/28/17 16:52 73 11/28/17 15:58 98.0 76 20 127/80 (96) 94 11/28/17 14:43 73 15 142/79 (100) 99 Room Air Result Diagram: 11/28/17 0134 11/28/17 0134 Imaging Last Impressions Chest X-Ray 11/28/17 0119 Signed Impressions: Service Date/Time: Tuesday, November 28, 2017 01:31 - CONCLUSION: No acute disease. No significant change has occurred. Edgardo Veliz MD Abdomen/Pelvis CT 11/28/17 0000 Signed Impressions: Service Date/Time: Tuesday, November 28, 2017 03:37 - CONCLUSION: Unremarkable examination. Edgardo Veliz MD Objective Remarks GENERAL: Very pleasant 62 yo male, in bed appears in nad. CARDIOVASCULAR: Regular rate and rhythm. RESPIRATORY: No accessory muscle use. Clear to auscultation. Breath sounds equal bilaterally. GASTROINTESTINAL: Abdomen soft, obese, non-tender, nondistended. Hepatic and splenic margins not palpable. MUSCULOSKELETAL: Extremities without clubbing, cyanosis, or edema. No obvious deformities. NEUROLOGICAL: Awake and alert. No obvious cranial nerve deficits. Motor grossly within normal limits. Five out of 5 muscle strength in the arms and legs. Normal speech. PSYCHIATRIC: Appropriate mood and affect; insight and judgment normal. A/P Assessment and Plan 62 yo male with PMH of HTn, HLD CAD with chest ain Chest pain CAD with stents in the last HTN HLD Follows with Dr Rubalcava cardiology Plan for cardiac cath in the morning 11/30/17 Restart home meds DC nitro SL and started on Nitro paste as pain is not controlled Monitor on telemetry EKG reviewed Constipation: Laxatives/stool softeners as need DVT ppx scd/teds/lovenox Bonnie Goldberg MD Nov 29, 2017 11:54
[2017-11-29] MEDS: DOCUSATE SODIUM 50 MG/SENNA 8.6 MG TAB PO SCH (21:00)
[2017-11-29] MEDS: ATORVASTATIN 20 MG TAB PO SCH (21:42)
[2017-11-30] VITALS (7 sets, daily range): BP systolic 103–134; BP diastolic 57–76; PULSE 59–82; RESP 16–18; TEMP 98–98.4; O2SAT 92–97
[2017-11-30] MEDS: NITROGLYCERIN 2% OINT 1 GM PACKET TOPICAL SCH ×3 (02:00→21:14)
--- NOTE | 2017-11-30 08:26 | EKG ---
Date Performed: 11/28/2017 Time Performed: 07:48:59 PTAGE: 62 years EKG: Sinus rhythm Poor R wave progression Cannot exclude old anteroseptal [place] vs. lead placement Since previous tracing , no significant change noted ABNORMAL ECG PREVIOUS TRACING : 11/28/2017 03.06 DOCTOR: Ever Eldridge Interpretating Date/Time 11/30/2017 08:25:56
--- NOTE | 2017-11-30 08:28 | EKG ---
Date Performed: 11/28/2017 Time Performed: 11:21:18 PTAGE: 62 years EKG: Sinus rhythm Poor R wave progression Cannot exclude old anteroseptal [place] vs. lead placement Since previous tracing , no significant change noted ABNORMAL ECG PREVIOUS TRACING : 11/28/2017 03.06 DOCTOR: Ever Eldridge Interpretating Date/Time 11/30/2017 08:27:05
--- NOTE | 2017-11-30 08:30 | EKG ---
Date Performed: 11/28/2017 Time Performed: 23:42:43 PTAGE: 62 years EKG: Sinus rhythm Poor R wave progression Cannot exclude old anteroseptal CT vs lead placement Since PREVIOUS TRACING , no significant change noted PREVIOUS TRACIN11/28/17 11:21 DOCTOR: Ever Eldridge Interpretating Date/Time 11/30/2017 08:28:40
--- NOTE | 2017-11-30 08:30 | EKG ---
Date Performed: 11/29/2017 Time Performed: 07:56:35 PTAGE: 62 years EKG: Sinus rhythm Poor R wave progression Cannot exclude old anteroseptal [place] vs. lead placement Since PREVIOUS TRACING , no significant change noted PREVIOUS TRACIN11/28/2017 23.42 DOCTOR: Ever Eldridge Interpretating Date/Time 11/30/2017 08:29:30
[2017-11-30] MEDS: LOSARTAN 50 MG TAB PO SCH (09:20)
[2017-11-30] MEDS: DOCUSATE SODIUM 50 MG/SENNA 8.6 MG TAB PO SCH ×2 (09:20→21:00)
[2017-11-30] MEDS: CARVEDILOL 3.125 MG TAB PO SCH ×2 (09:20→21:00)
[2017-11-30] MEDS: PANTOPRAZOLE SOD 40 MG DELAYED RELEASE TAB PO SCH (09:20)
[2017-11-30] MEDS: SODIUM CHLORIDE 0.9% FLUSH 10 ML FLUSH IV FLUSH SCH ×3 (09:27→21:15)
[2017-11-30] MEDS: ASPIRIN EC 81 MG TABEC PO SCH (11:22)
[2017-11-30] MEDS: CLOPIDOGREL 75 MG TAB PO SCH (11:22)
--- NOTE | 2017-11-30 13:47 | HHI.PR ---
Subjective Remarks In the bed say he hs some chest pain overnight however he is much improved with nitro paste. No diaphoresis, no n/v/d/c. No fever or chills. Says she has some indigestion. He is NPO after midnight . Objective Vitals Vital Signs Date Time Temp Pulse Resp B/P (MAP) Pulse Ox O2 Delivery O2 Flow Rate FiO2 11/30/17 11:27 98.4 75 16 116/66 (83) 97 11/30/17 09:19 65 134/76 (95) 11/30/17 08:27 98.2 77 16 111/67 (82) 95 11/30/17 05:33 98.4 59 18 103/62 (76) 94 11/30/17 00:14 98.0 72 18 106/57 (73) 92 11/29/17 21:32 98.7 66 18 120/73 (89) 97 11/29/17 17:36 70 11/29/17 16:35 97.6 76 20 105/62 (76) 95 Result Diagram: 11/28/17 0134 11/28/17 0134 Imaging Last Impressions Chest X-Ray 11/28/17 0119 Signed Impressions: Service Date/Time: Tuesday, November 28, 2017 01:31 - CONCLUSION: No acute disease. No significant change has occurred. Edgardo Veliz MD Abdomen/Pelvis CT 11/28/17 0000 Signed Impressions: Service Date/Time: Tuesday, November 28, 2017 03:37 - CONCLUSION: Unremarkable examination. Edgardo Veliz MD Objective Remarks GENERAL: Very pleasant 62 yo male, in bed appears in nad. CARDIOVASCULAR: Regular rate and rhythm. RESPIRATORY: No accessory muscle use. Clear to auscultation. Breath sounds equal bilaterally. GASTROINTESTINAL: Abdomen soft, obese, non-tender, nondistended. Hepatic and splenic margins not palpable. MUSCULOSKELETAL: Extremities without clubbing, cyanosis, or edema. No obvious deformities. NEUROLOGICAL: Awake and alert. No obvious cranial nerve deficits. Motor grossly within normal limits. Five out of 5 muscle strength in the arms and legs. Normal speech. PSYCHIATRIC: Appropriate mood and affect; insight and judgment normal. A/P Assessment and Plan 62 yo male with PMH of HTn, HLD CAD with chest ain Chest pain CAD with stents in the last HTN HLD Follows with Dr Rubalcava cardiology Plan for cardiac cath by Dr Rubalcava 11/30/17 Restart home meds as appropriate On Nitro paste pain is better controlled Monitor on telemetry EKG reviewed Constipation: Laxatives/stool softeners as need GERD start pantoprazole. Might consider GI eval as OP DVT ppx scd/teds/lovenox DC plan: will have cardiac cath, pending cardiology clearance Bonnie Goldberg MD Nov 30, 2017 13:47
[2017-11-30] MEDS ORDERED: MIDAZOLAM HCL 2 MG/2 ML VIAL ONE (14:37)
[2017-11-30] MEDS ORDERED: HEPARIN-NS/PF INJ 500 ML ONE (14:37)
[2017-11-30] MEDS ORDERED: NITROGLYCERIN INJ 5 ML ONE (14:37)
[2017-11-30] MEDS ORDERED: ADENOSINE STRESS TEST INJ 90 MG/30 ML VIAL ONE (15:07)
[2017-11-30] MEDS ORDERED: HEPARIN SODIUM - IV 10,000 UNITS/10 ML VIAL ONE (15:07)
[2017-11-30] MEDS ORDERED: TIROFIBAN INFUSION INJ 250 ML IV ONE (15:28)
[2017-11-30] MEDS ORDERED: CLOPIDOGREL 300 MG TAB ONE (15:35)
--- NOTE | 2017-11-30 15:50 | CATHPROC ---
[employer] HIS Report Study Information Study Number Admission Scheduled Start Study Start [id number] Nov 28 2017 7:53AM 11/30/2017 Nov 30 2017 2:33PM [place] Service Cardiac Catheterization Admit Source Facility Department Emergency department [facility] - [facility] [employer] Physician and Clinical Staff Initial MD Chadwick, Vinnie Form Tamper Melissa Benson RN Other cathlab, cathlab Recorder Brian Crabtree RCIS(BS) Scrub Ting Mccann,RT(R) Procedures Performed Procedure Location (Site) Vessel Name Coronary Angiograms LCA Left Coronary Coronary Angiograms RCA Right Coronary L Heart Cath LV Gram-hand inj. LV LV Ventricle PTCA LAD Prox Left Coronary Wire insertion Fem Art (right) Femoral Art Equipment Time Frit Mixer And Burner Description Size Mfg Part Number Used/Scraped TRANSDUCER, EMERSON [id number] 14:34 JOHNSON CASTRO * Used W/STOCKCOCK *[id number] 15:11 [place] My eShoe WIRE, COMET PRESSURE [id number] Used [id number] *[id number] [id number] *[id number] *[id number] 14:34 MEDLINE IND[employer]RIES PACK, CCL CUSTOM * Used *[id number] 14:34 [employer] - [employer] PACER PEN, SKIN DUAL W/ RULER * Used *[id number] 15:18 MEDTRONIC BALLOON, 3.0 X 12MM EUPHORA 12MM Used *[id number] 15:05 [employer]ilOne MEDICAL 30 GARCIA INDEFLATOR Used *[id number] 15:05 [employer] MEDICAL SHEATH, FR6.5 PRELUDE 11CM FR 6.5 038ACT Used *[id number] 15:00 [employer] MEDICAL WIRE, 3MMJ .035 180CM 180CM Used *[id number] 14:34 [employer] MEDICAL WIRE, 3MMJ .035 180CM 180CM Used *[id number] 14:34 NAMIC MANIFOLD, 4 PORT * Used *[id number] 14:34 NYCOMED OMNIPAQUE, 350 MG, 150ML 150ML [id number] Used 15:25 NYCOMED OMNIPAQUE, 350 MG, 150ML 150ML [id number] Used [id number] 14:34 HERRERA MEDICAL BLANKET,WARM AIR CCL * Used *[id number] 14:34 TERUMO MEDICAL SHEATH, FR4 TERUMO (10CM) FR 4 Used *[id number] History: Current Medications Medication Dosage/Unit Route Frequency Last Date/Time Taken ASA Beta Mague NORVASC History: Allergies Allergy Reaction No Known Allergies History: Risk Factors Family History of Hypertension Dyslipidemia Previous [place] Previous Heart Failure Premature CAD Yes Yes No No Yes Prior Valve Prior PCI Prior PCIDate Prior CABG Surgery No Yes 11/16/2013 No Cerebrovascular Peripheral Artery Chronic Lung On Dialysis Diabetes Disease Disease Disease No No No No No History: Stress Tests Stress or Imaging Studies Performed Yes Standard Exercise Stress Test No Stress Echo No Stress Test SPECT No Stress Test CMR Stress Test CMR Result Yes Indeterminant Cardiac CTA Coronary Calcium Score No No History: [place]/CV Data Previous Cath Date 11/16/2013 History: Other Current Smoker Method Quit Packs a Day Years Used Pack Years No Cigarettes 4 Years Ago 1 40 40 Labs Hgb (g/dl) Hct (%) WBC (l/cumm) Platelets (thousands) 11.60-17.00 35.00-51.00 4.00-11.00 150.00-450.00 14.0 42 4.5 279 Glucose (mg/dl) BUN (mg/dl) Creatinine (mg/dl) BUN:Creatinine (1:x) 74.00-106.00 7.00-18.00 0.50-1.30 10.00-20.00 123 21 1.0 21 Na (meq/l) K (meq/l) 136.00-145.00 3.50-5.10 138 4.3 INR (PTT:PT) 0.90-1.10 1 CPK (u/l) CPK-MB (ng/ML) 26.00-308.00 0.50-3.60 60 Not Drawn Medication Medication Total Dose (Bolus/Oral) Medication Total Dosage/Unit 1% XYLOCAINE 20 mL AGGRASTAT BOLUS 46 meq/kg HEPARIN 6500 units PLAVIX 600 mg Medications (Bolus/Oral) Medication Time Given Dosage/Unit Administered By Reason 1% XYLOCAINE 11/30/2017 2:57:31 PM 20 mL Vinnie Chadwick 20 mL 1% XYLOCAINE given in lab by Vinnie Chadwick in Right Groin via Subcutaneous. HEPARIN 11/30/2017 3:08:16 PM 6500 units Melissa Benson 6500 units HEPARIN given in lab by Melissa Benson, RN in Right Antecubital via Peripheral IV. Ordere d by Vinnie Chadwick. AGGRASTAT BOLUS 11/30/2017 3:31:00 PM 46 meq/kg Melissa Benson 46 meq/kg AGGRASTAT BOLUS given in lab by Melissa Benson RN in Right Antecubital via Peripheral IV. Amount given = 4232 meq. Ordered by Vinnie Chadwick. PLAVIX 11/30/2017 3:35:48 PM 600 mg Melissa Benson 600 mg PLAVIX given in lab by Melissa Benson RN via Oral. Ordered by Vinnie Chadwick. Medication (Drip) Medication Time Given Dosage/Unit Concentration/Unit Diluent (ml) Solutio n AGGRASTAT DRIP 11/30/2017 3:32:00 PM 16.6 mcg/kg/min 12.5 mg 250 NaCl .9 16.6 mcg/kg/min AGGRASTAT DRIP given in lab by Melissa Benson RN in Right Antecubital via Periphera l IV. Pump/Drip Flow = 1832.64 ml/hr using NaCl .9 with a concentration of 12.5 mg in 250 ml. Ordered by Vinnie Chadwick. IV Solutions 11/30/2017 2:32:57 PM 0 mL (IV) 500 NaCl .9 Patient arrived on IV Solutions given by dorian alarcon in Left Antecubital via Peripheral IV. Pump /Drip Flow = 20 ml/hr using NaCl .9. Ordered by Vinnie Chadwick. Initial Case Assessment Cardiovascular HR Rhythm NIBP Chest Pain 82 nsr 150/65 1 Edema Present Skin color Skin None Normal Warm Dry Circulatory - Right Pulses Dorsalis Pedis Femoral 2 3 Scale (0,1,2,3,4,d) Circulatory - Left Pulses Dorsalis Pedis Femoral 2 3 Scale (0,1,2,3,4,d) Neurological State Oriented to time-place- Alert Moves all extremities person Respiration - General Respiration Rate SpO2 (%) (B/min) 12 98 Initial Case Assessment Cardiovascular HR Rhythm NIBP Chest Pain 82 nsr 142/84 1 Edema Present Skin color Skin None Normal Warm Dry Circulatory - Right Pulses Dorsalis Pedis Femoral 2 3 Scale (0,1,2,3,4,d) Circulatory - Left Pulses Dorsalis Pedis Femoral 2 3 Scale (0,1,2,3,4,d) Neurological State Oriented to time-place- Alert Moves all extremities person Respiration - General Respiration Rate SpO2 (%) (B/min) 12 98 Chronological Log Time Study Chronological Log 14:32:48 Patient arrived via Bed. 14:32:48 Patient Name, D.O.B, / Armband Verified By R.N. 14:32:49 Consent signed by the physician and the patient and verified by the [facility] [employer] staff. 14:32:50 Pre-op and post- op instructions given; patient acknowledges understanding of instructions. 14:32:50 Verbal Stimulation=2 Physical Stimulation=2 Airway=2 Respiration=2 TOTAL=8. (0=absent, 1=li mited, 2=present) 14:32:51 Presedation assessment performed by [employer] RN. 14:32:52 Immediate Presedation assesment performed by physician. 14:32:52 Patient has been NPO for More than 6Hrs. 14:32:53 Skin Breakdown- none per patient 14:32:54 Patient Warmer Placed on the Table. 14:32:55 [place]field Prominences Protected 14:32:57 A # 20 IV was noted in the Antecubital (right). Grade = 0 Patient arrived on IV Solutions given by cathlab, cathlab in Left Antecubital via Peripheral IV . Pump/Drip Flow = 20 14:32:57 ml/hr using NaCl .9. Ordered by Vinnie Chadwick. 14:32:58 History and physical on the chart or being dictated. Assessment: Initial Case, HR=82 BPM, Rhythm=nsr, RIDI=263/65 mmhg, Chest Pain=1, Edema=None, Co guillermina=Normal, Skin = Warm, Dry Right Pulses: Jhonny Ped=2, Femoral=3 14:33:02 Left Pulses: Jhonny Ped=2, Femoral=3 Neurological: State=Alert, Ox3, OROZCO Respiration: Resp=12 B/min, SpO2=98 % Vitals capture started with the following parameters, Patient=Adult, Interval=5 min, Initial Pr vqbxlf=912 mmHg, 14:37:24 Deflation Rate=5 mmHg, Cuff placed on Left Arm 14:37:45 Reference ECG taken 14:38:07 HR=91 bpm, WPJT=935/65 mmhg, SpO2=98 %, Resp=15 B/min, Pain=0, Elda=10, Landeros=2 14:43:04 HR=73 bpm, OELK=093/80 mmhg, SpO2=97 %, Resp=11 B/min, Pain=0, Elda=10, Landeros=2 14:47:59 HR=80 bpm, SHPX=155/89 mmhg, SpO2=96.0 %, Resp=16 B/min, Pain=0, Elda=10, Landeros=2 14:48:12 Bilateral groins prepped with 2% chlorhexidine, and draped after a 3 minute waiting time. 14:48:32 MD paged 14:49:25 Pressure channel 1 zeroed. 14:52:58 HR=71 bpm, YYOU=114/82 mmhg, SpO2=94.0 %, Resp=9 B/min, Pain=0, Elda=10, Landeros=2 14:53:08 MD responded 14:54:08 MD arrived. 14:54:11 Contrast Scanned 14:54:12 Immediate Presedation assesment performed by physician. Time Out. Correct patient, correct procedure, correct physician, power injector not loaded with contrast with surgical 14:57:08 team present. Time Out Concurred by MD and individual staff in procedure. 14:57:13 Case Start 14:57:14 Verbal Stimulation=2 Physical Stimulation=2 Airway=2 Respiration=2 TOTAL=8. (0=absent, 1=li mited, 2=present) 14:57:31 20 mL 1% XYLOCAINE given in lab by Vinnie Chadwick in Right Groin via Subcutaneous. 14:58:01 HR=67 bpm, VETT=637/75 mmhg, SpO2=96.0 %, Resp=14 B/min, Pain=0, Elda=10, Landeros=2 14:59:33 Access site was Right Femoral Artery. 14:59:41 A SHEATH, FR4 TERUMO (10CM) FR 4 was advanced into the Fem Art (right) using the Percutaneo us technique. A JR 4.0 INFINITI CATHETER FR 4 was advanced over a wire. OMNIPAQUE, 350 MG, 150ML 150ML was us ed for 14:59:46 injections. Recorded Pressure: LV, HR=75, Condition=Condition 1 15:01:22 (Left Ventricle) LV 128/2/8 15:01:29 The LV was manually injected with 10 cc's and visualized. OMNIPAQUE, 350 MG, 150ML 150ML us ed. Recorded Pressure: LV, Ao, HR=74, Condition=Condition 1 15:01:50 (Left Ventricle) LV 131/-8/9, (Aorta) Ao 125/59/91 15:02:03 The RCA was injected and visualized at various angles. OMNIPAQUE, 350 MG, 150ML 150ML used . 15:02:26 Catheter was removed A JL 4.0 INFINITI CATHETER FR 4 was advanced over a wire. OMNIPAQUE, 350 MG, 150ML 150ML was us ed for 15::26 injections. 15:02:58 HR=70 bpm, MQDW=120/84 mmhg, SpO2=95 %, Resp=16 B/min, Pain=0, Elda=10, Landeros=2 15:03:41 The LCA was injected and visualized at various angles. OMNIPAQUE, 350 MG, 150ML 150ML used . 15:05:13 Catheter was removed A SHEATH, FR6.5 PRELUDE 11CM FR 6.5 was exchanged in the Fem Art (right). This was necessary in order to 15:05:14 accomodate a larger catheter. 15:07:59 HR=84 bpm, QWKW=251/84 mmhg, SpO2=93.0 %, Resp=11 B/min 6500 units HEPARIN given in lab by Melissa Benson, GERSON in Right Antecubital via Peripheral IV. Ordered by Farrukh, 15:08:16 Vinnie. A XB 3.5 GUIDE CATHETER FR 6 was advanced over a wire. OMNIPAQUE, 350 MG, 150ML 150ML was used for 15:09:35 injections. 15:13:02 HR=84 bpm, JFHT=502/78 mmhg, SpO2=94.0 %, Resp=12 B/min 15:14:21 A CATHETER, COMET was inserted via Fem Art (right). 15:14:42 Interventional wire has crossed the lesion 15:14:56 Flow Wire was was placed in the LAD Prox. The FFR measures ~FFR~ percent. The IFR measures 0.88 Percent. 15:18:36 HR=86 bpm, ENPR=897/84 mmhg, SpO2=99.0 %, Resp=14 B/min 15:20:37 A BALLOON, 3.0 X 12MM EUPHORA 12MM was inserted over CATHETER, COMET via the LAD Prox. A BALLOON, 3.0 X 12MM EUPHORA 12MM over a CATHETER, COMET in the LAD Prox was inflated using a 30 GARCIA 15:20:58 INDEFLATOR at 11 garcia for 12 sec. 15:22:03 Balloon Removed. 15:22:09 Wire removed 15:22:14 Catheter was removed 15:23:00 HR=85 bpm, XSEH=263/84 mmhg, SpO2=95.0 %, Resp=11 B/min 15:23:03 Case End Assessment: Initial Case, HR=82 BPM, Rhythm=nsr, PFQN=646/84 mmhg, Chest Pain=1, Edema=None, Co guillermina=Normal, Skin = Warm, Dry Right Pulses: Jhonny Ped=2, Femoral=3 15:23:14 Left Pulses: Jhonny Ped=2, Femoral=3 Neurological: State=Alert, Ox3, OROZCO Respiration: Resp=12 B/min, SpO2=98 % 15:23:47 In the Fem Art (right) the SHEATH, FR6.5 PRELUDE 11CM FR 6.[address] by Ting Mccann RT(R). 15:23:54 Sterile dressing applied to site 15:23:54 No case complications noted. 15:23:56 Cine recording checked. 15:23:57 Holding Area notified of successful intervention. 15:24:01 Bedside Report will be given. 15:24:04 Contrast Scanned 15:24:09 A Left Heart Cath was performed. 15::57 Activated Clotting Time Drawn 15:27:46 ACT (Normal Range 90-180) = 286 15:28:05 HR=69 bpm, FMNS=157/77 mmhg, SpO2=93.0 %, Resp=16 B/min 46 meq/kg AGGRASTAT BOLUS given in lab by Melissa Benson, GERSON in Right Antecubital via Peripher al IV. Amount given 15:31:00 = 4232 meq. Ordered by Vinnie Chadwick. 16.6 mcg/kg/min AGGRASTAT DRIP given in lab by Melissa Benson, GERSON in Right Antecubital via Per ipheral IV. 15:32:00 Pump/Drip Flow = 1832.64 ml/hr using NaCl .9 with a concentration of 12.5 mg in 250 ml. Ord ered by Vinnie Chadwick. 15:33:00 HR=75 bpm, FPBU=609/77 mmhg, SpO2=93.0 %, Resp=12 B/min 15:35:48 600 mg PLAVIX given in lab by Melissa Benson, RN via Oral. Ordered by Vinnie Chadwick. 15:38:01 HR=75 bpm, NGTX=407/77 mmhg, SpO2=93.0 %, Resp=12 B/min, Pain=0, Elda=10, Landeros=2 15:39:43 Vitals capture stopped. 15:39:44 [facility] - Contrast Media Used In Study Contrast Total Opened (mL) Total Used (mL) Total Wasted (mL) Omnipaque 85 85 0 End Study - Maximum Contrast Load Max Contrast Load (mL) 460.0 End Study - Radiation Exposure Fluoro Time (minutes) 4.3 End Study - Patient Disposition Complications Transferred To Interventional Outcome No [facility] [employer] Holding successful
[2017-11-30] MEDS ORDERED: TIROFIBAN INFUSION INJ 250 ML IV SCH (15:54)
[2017-11-30] MEDS ORDERED: MISC INFORMATION XX ONE (16:00)
[2017-11-30] MEDS ORDERED: CLOPIDOGREL 300 MG TAB PO ONE (16:00)
[2017-11-30] MEDS ORDERED: SODIUM CHLORIDE 0.9% FLUSH 10 ML FLUSH IV FLUSH PRN (16:00)
[2017-11-30] MEDS ORDERED: BACITRACIN OINT 0.9 GM PKT TOP ONE (16:00)
[2017-11-30] MEDS ORDERED: IOHEXOL 350 MG/ML 100 ML BTL (for Cath Lab) OTHER ONE (16:57)
[2017-11-30] MEDS ORDERED: PANTOPRAZOLE SOD 20 MG DELAYED RELEASE TAB PO ONE (17:15)
[2017-11-30] MEDS: ATORVASTATIN 20 MG TAB PO SCH (21:14)
[2017-11-30] MEDS ORDERED: NITROGLYCERIN 0.4 MG SL 25 TABS/BTL SL ONE (23:30)
[2017-12-01] VITALS (7 sets, daily range): BP systolic 105–131; BP diastolic 77–85; PULSE 62–88; RESP 16–20; TEMP 97.2–97.7; O2SAT 95–97
[2017-12-01] MEDS: NITROGLYCERIN 2% OINT 1 GM PACKET TOPICAL SCH ×2 (04:14→09:14)
[2017-12-01 05:24] LABS: AUTOMATED NEUTROPHIL # 4.7 TH/MM3 (1.8-7.7); BASOPHIL # 0.1 TH/MM3 (0-0.2); BASOPHIL % 0.9 % (0.0-2.0); EOSINOPHIL # 0.3 TH/MM3 (0-0.4); EOSINOPHIL % 3.4 % (0.0-4.0); HEMATOCRIT 42.1 % (39.0-51.0); HEMOGLOBIN 14.5 GM/DL (13.0-17.0); LYMPH % 23.8 % (9.0-44.0); LYMPHOCYTE # 1.8 TH/MM3 (1.0-4.8); MEAN CELL VOLUME 92.4 FL (80.0-100.0); MEAN CORPUSCULAR HEMOGLOBIN 31.9 PG (27.0-34.0); MEAN CORPUSCULAR HGB CONC 34.5 % (32.0-36.0); MEAN PLATELET VOLUME 7.8 FL (7.0-11.0); MONO % 10.9 % (0.0-8.0); MONOCYTE # 0.8 TH/MM3 (0-0.9); PLATELET COUNT 258 TH/MM3 (150-450); RED BLOOD COUNT 4.56 MIL/MM3 (4.50-5.90); WHITE BLOOD COUNT 7.8 TH/MM3 (4.0-11.0)
[2017-12-01 05:46] LABS: BICARBONATE 27.2 MEQ/L (21.0-32.0); CALCIUM 8.5 MG/DL (8.5-10.1); CREATININE 1.01 MG/DL (0.60-1.30)
[2017-12-01 05:48] LABS: CHOLESTEROL/ HDL RATIO 2.43 RATIO; HDL CHOLESTEROL 40.6 MG/DL (40.0-60.0)
[2017-12-01] MEDS ORDERED: ASPIRIN 81 MG CHEW TAB PO SCH (09:00)
[2017-12-01] MEDS ORDERED: CLOPIDOGREL 75 MG TAB PO SCH (09:00)
[2017-12-01] MEDS ORDERED: PANTOPRAZOLE SOD 20 MG DELAYED RELEASE TAB PO SCH (09:00)
--- NOTE | 2017-12-01 09:06 | HHI.PR ---
Subjective Remarks This is a pleasant 62 y/o Male with Atypical chest pain status post Cardiac Catheterization not yet report in EMR Okay to discharge as per cardiac nurse specialist he is with his in his bedroom, will be discharged home now. Objective Vital Signs Date Time Temp Pulse Resp B/P (MAP) Pulse Ox O2 Delivery O2 Flow Rate FiO2 12/01/17 04:21 97.2 73 16 131/77 (95) 97 12/01/17 00:51 16 12/01/17 00:15 70 11/30/17 21:12 98.3 71 16 114/71 (85) 95 11/30/17 20:16 82 11/30/17 19:48 21 11/30/17 15:56 97 Room Air 11/30/17 11:27 98.4 75 16 116/66 (83) 97 11/30/17 09:19 65 134/76 (95) I/O 11/30/17 11/30/17 11/30/17 12/01/17 12/01/17 12/01/17 07:00 15:00 23:00 07:00 15:00 23:00 Intake Total 250 ml Balance 250 ml Intake IV Total 250 ml Result Diagram: 12/01/17 0451 12/01/17 0451 Imaging Last Impressions Chest X-Ray 11/28/17 0119 Signed Impressions: Service Date/Time: Tuesday, November 28, 2017 01:31 - CONCLUSION: No acute disease. No significant change has occurred. Edgardo Veliz MD Abdomen/Pelvis CT 11/28/17 0000 Signed Impressions: Service Date/Time: Tuesday, November 28, 2017 03:37 - CONCLUSION: Unremarkable examination. Edgardo Veliz MD Procedures Left heart Catheterization. not yet in EMR for description but okay to discharge as per cardiac nurse specialist. Other Results Laboratory Tests Test 11/28/17 01:34 11/29/17 08:02 12/01/17 04:51 Prothrombin Time 10.2 SEC Prothromb Time International Ratio 1.0 RATIO Activated Partial Thromboplast Time 25.7 SEC D-Dimer Quantitative (PE/DVT) LESS THAN 0.19 MG/L FEU Blood Urea Nitrogen 21 MG/DL 19 MG/DL Creatinine 1.09 MG/DL 1.01 MG/DL Random Glucose 123 MG/DL 113 MG/DL Total Protein 7.8 GM/DL Albumin 3.9 GM/DL Calcium Level 8.5 MG/DL 8.5 MG/DL Magnesium Level 2.3 MG/DL Alkaline Phosphatase 73 U/L Aspartate Amino Transf (AST/SGOT) 10 U/L Alanine Aminotransferase (ALT/SGPT) 27 U/L Total Bilirubin 0.3 MG/DL Sodium Level 138 MEQ/L 138 MEQ/L Potassium Level 4.3 MEQ/L 3.8 MEQ/L Chloride Level 104 MEQ/L 104 MEQ/L Carbon Dioxide Level 26.6 MEQ/L 27.2 MEQ/L B-Type Natriuretic Peptide 5 PG/ML Lipase 118 U/L Troponin I LESS THAN 0.02 NG/ML White Blood Count 7.8 TH/MM3 Red Blood Count 4.56 MIL/MM3 Hemoglobin 14.5 GM/DL Hematocrit 42.1 % Mean Corpuscular Volume 92.4 FL Mean Corpuscular Hemoglobin 31.9 PG Mean Corpuscular Hemoglobin Concent 34.5 % Red Cell Distribution Width 13.0 % Platelet Count 258 TH/MM3 Mean Platelet Volume 7.8 FL Neutrophils (%) (Auto) 61.0 % Lymphocytes (%) (Auto) 23.8 % Monocytes (%) (Auto) 10.9 % Eosinophils (%) (Auto) 3.4 % Basophils (%) (Auto) 0.9 % Neutrophils # (Auto) 4.7 TH/MM3 Lymphocytes # (Auto) 1.8 TH/MM3 Monocytes # (Auto) 0.8 TH/MM3 Eosinophils # (Auto) 0.3 TH/MM3 Basophils # (Auto) 0.1 TH/MM3 CBC Comment DIFF FINAL Differential Comment Anion Gap 7 MEQ/L Estimat Glomerular Filtration Rate 75 ML/MIN Total Creatine Kinase 48 U/L Triglycerides Level 93 MG/DL Cholesterol Level 99 MG/DL LDL Cholesterol 40 MG/DL HDL Cholesterol 40.6 MG/DL Cholesterol/HDL Ratio 2.43 RATIO Objective Remarks GENERAL: Very pleasant 62 yo male, in bed appears in nad. CARDIOVASCULAR: Regular rate and rhythm. RESPIRATORY: No accessory muscle use. Clear to auscultation. Breath sounds equal bilaterally. GASTROINTESTINAL: Abdomen soft, obese, non-tender, nondistended. Hepatic and splenic margins not palpable. MUSCULOSKELETAL: Extremities without clubbing, cyanosis, or edema. No obvious deformities. NEUROLOGICAL: Awake and alert. No obvious cranial nerve deficits. Motor grossly within normal limits. Five out of 5 muscle strength in the arms and legs. Normal speech. PSYCHIATRIC: Appropriate mood and affect; insight and judgment normal. Medications and IVs Current Medications Medications (Trade) Dose Ordered Sig/Jenn Route Start Time Stop Time Status Last Admin (Plavix) 75 mg DAILY PO 11/29/17 09:00 11/30/17 11:22 (Norvasc) 10 mg DAILY PO 11/29/17 09:00 11/30/17 09:19 (Lipitor) 20 mg HS PO 11/28/17 21:00 11/30/17 21:14 (Coreg) 3.125 mg BID PO 11/28/17 21:00 11/30/17 09:20 (Cozaar) 50 mg DAILY PO 11/29/17 09:00 11/30/17 09:20 (Nitrostat Sl) 0.4 mg Q5M PRN SL 11/28/17 23:45 11/29/17 00:14 (Nitroglycerin 2% Oint) 1 inch Q6H TOPICAL 11/29/17 08:00 12/01/17 04:14 (Morphine Inj) 2 mg Q3H PRN IV PUSH 11/29/17 08:00 (Britta-Colace) 1 tab BID PO 11/29/17 21:00 11/30/17 09:20 (Milk Of Magnesia Liq) 30 ml Q12H PRN PO 11/29/17 10:15 (Senokot) 17.2 mg Q12H PRN PO 11/29/17 10:15 (Dulcolax Supp) 10 mg DAILY PRN RECTAL 11/29/17 10:15 (NS Flush) 2 ml UNSCH PRN IV FLUSH 11/30/17 16:00 (NS Flush) 2 ml BID IV FLUSH 11/30/17 21:00 (Aspirin Chew) 162 mg DAILY PO 12/01/17 09:00 (Plavix) 75 mg DAILY PO 12/01/17 09:00 Tirofiban/Sodium Chloride 250 ml @ 16.56 mls/ hr Q15H6M IV 11/30/17 15:54 12/01/17 09:53 12/01/17 04:13 (Protonix) 20 mg DAILY PO 12/01/17 09:00 A/P Assessment and Plan Chest pain CAD with stents in the last HTN HLD Follows with Dr Rubalcava cardiology Plan for cardiac cath by Dr Rubalcava 11/30/17 Restart home meds as appropriate On Nitro paste pain is better controlled Monitor on telemetry EKG reviewed status post Cardiac Catheterization, okay to discharge by cardiac nurse specialist will follow as outpatient. Constipation: Improved. GERD start pantoprazole. Might consider GI eval as OP, continue Famotidine and Carafate. DVT ppx scd/teds/lovenox Discharge Planning Discharge Home today. Liam Vazquez MD Dec 01, 2017 09:06
[2017-12-01] MEDS: CLOPIDOGREL 75 MG TAB PO SCH (09:13)
[2017-12-01] MEDS: DOCUSATE SODIUM 50 MG/SENNA 8.6 MG TAB PO SCH (09:13)
[2017-12-01] MEDS: LOSARTAN 50 MG TAB PO SCH (09:13)
[2017-12-01] MEDS: CARVEDILOL 3.125 MG TAB PO SCH (09:13)
[2017-12-01] MEDS: SODIUM CHLORIDE 0.9% FLUSH 10 ML FLUSH IV FLUSH SCH (09:14)
[2017-12-01] MEDS ORDERED: SUCRALFATE 1 GM TAB PO ONE (10:00)
[2017-12-01] MEDS ORDERED: ASPI81 PO (10:42)
[2017-12-01] MEDS ORDERED: CARA1TAB6 PO (10:42)
[2017-12-01] MEDS ORDERED: FAMO20TA2 PO (10:42)
--- NOTE | 2017-12-01 10:45 | HHI.DS ---
Discharge Summary Admission Date Nov 30, 2017 at 15:56 Discharge Date: Dec 01, 2017 Admitting Diagnosis Chest Pain (1) Chest pain ICD Code: R07.9 - Chest pain, unspecified Diagnosis: Principal Status: Acute (2) Unstable angina ICD Code: I20.0 - Unstable angina Diagnosis: Principal (3) CAD (coronary artery disease) ICD Code: I25.10 - Atherosclerotic heart disease of [place] coronary artery without angina pectoris Diagnosis: Principal Procedures Cardiac Catheterization Brief History - From Admission 62-year-old male with history of coronary artery disease, cardiac stents, hypertension, and GERD presents to emergency room for further evaluation of chest pain. Onset 4 days ago. Characterized as heaviness. Location substernal. Severity moderate, waxing and waning in intensity. No radiation. No associated symptoms of nausea, vomiting, or diaphoresis. Last evening experience associated symptom of dyspnea, therefore can the ER for further evaluation. Precipitating factors seem occur more often after eating, although not consistent. No known relieving factors. Currently reports "mild" discomfort pointing to epigastric area. Follows with Dr. Chadwick. In fact, reports normal treadmill stress testing 2 weeks ago. Testing completed due to intermittent chest discomfort. State Dr. Chadwick advised him to return to ER for any further chest discomfort a couple weeks ago for possible cardiac catheterization. CBC/BMP: 12/01/17 0451 12/01/17 0451 Significant Findings Laboratory Tests Test 11/28/17 23:45 11/29/17 08:02 12/01/17 04:51 Troponin I LESS THAN 0.02 NG/ML LESS THAN 0.02 NG/ML Monocytes (%) (Auto) 10.9 % (0.0-8.0) Blood Urea Nitrogen 19 MG/DL (7-18) Random Glucose 113 MG/DL (74-106) Estimat Glomerular Filtration Rate 75 ML/MIN (>89) Cholesterol Level 99 MG/DL (120-200) Imaging Last Impressions Chest X-Ray 11/28/17 0119 Signed Impressions: Service Date/Time: Tuesday, November 28, 2017 01:31 - CONCLUSION: No acute disease. No significant change has occurred. Edgardo Veliz MD Abdomen/Pelvis CT 11/28/17 0000 Signed Impressions: Service Date/Time: Tuesday, November 28, 2017 03:37 - CONCLUSION: Unremarkable examination. Edgardo Veliz MD PE at Discharge GENERAL: No acute distress. CARDIOVASCULAR: Regular rate and rhythm. RESPIRATORY: No accessory muscle use. Clear to auscultation. Breath sounds equal bilaterally. GASTROINTESTINAL: Abdomen soft, obese, non-tender, nondistended. Hepatic and splenic margins not palpable. MUSCULOSKELETAL: Extremities without clubbing, cyanosis, or edema. No obvious deformities. NEUROLOGICAL: Awake and alert. No obvious cranial nerve deficits. Motor grossly within normal limits. Five out of 5 muscle strength in the arms and legs. Normal speech. PSYCHIATRIC: Appropriate mood and affect; insight and judgment normal. Hospital Course This is a pleasant 62 y/o Male with Atypical chest pain status post Cardiac Catheterization not yet report in EMR Okay to discharge as per consumer loan specialist he is with his in his bedroom, will be discharged home now. Assessment and Plan Chest pain CAD with stents in the last HTN controlled. HLD continue statins. Follows with Dr Rubalcava cardiology Plan for cardiac cath by Dr Rubalcava 11/30/17 Restart home meds as appropriate On Nitro paste pain is better controlled Monitor on telemetry EKG reviewed status post Cardiac Catheterization, okay to discharge by consumer loan specialist will follow as outpatient. Constipation: Improved. GERD start pantoprazole. Might consider GI eval as OP, continue Famotidine and Carafate. Discussed with patient and his in the room also with nurse Miss Gabriel DVT ppx scd/teds/lovenox Discharge Planning Discharge Home today. Pt Condition on Discharge: Good Discharge Disposition: Discharge Home Discharge Time: <= 30 minutes Discharge Instructions DIET: Follow Instructions for: Heart Healthy Diet Activities you can perform: Regular-No Restrictions Liam Vazquez MD Dec 01, 2017 10:45
--- NOTE | 2017-12-01 14:25 | MA ---
cc: STARR CRAVEN M.D. DATE 11/30/2017 PROCEDURE PERFORMED 1. Left heart catheterization. 2. Left ventriculography. 3. Coronary angiography. 4. IFR of the proximal LAD. INDICATION Unstable angina, [place] [employer] Class IV angina, coronary artery disease. PROCEDURE The patient was brought to the cardiac catheterization laboratory and prepped and draped in the usual sterile fashion. 10 cc of 1% lidocaine was used to locally anesthetize the right common femoral artery. A 4 American sheath was successfully placed in the right common femoral artery. 4 American JL4 and JR4 Albert catheters were used to perform left and right coronary angiography and left ventriculography. FINDINGS LV pressure 130/10-12. EF 50%. Note I took the ventriculogram in SAMUELS caudal positions. Imaging was suboptimal. The right coronary artery is dominant. in the prox-mid segment with possibly a 50-60% stenosis in the mid to distal segment. This appears unchanged compared to previous. The left main coronary artery is long, has no significant disease graphically. The LAD has an ostial 20% stenosis, proximal 20% stenosis. beyond the first diagonal artery has a diffuse 70% stenosis. The first diagonal artery is a medium to large size vessel, probably at least 3.0 mm diameter, reference vessel diameter, with ostial and proximal 20% stenosis. The LAD is transapical. The left circumflex vessel has mild disease, the proximal segment up to 30% angiographically. The first obtuse marginal vessel is a small vessel, reference vessel diameter of 1.5 mm diameter. No significant disease angiographically. The second obtuse marginal vessel is a large vessel, reference vessel diameter 3.5 mm in diameter, with mild diffuse disease in the proximal segment up to 10-20% angiographically. The remainder of the AV groove left circumflex vessel has no significant obstructive disease, gives off two small distal posterolateral arteries which are less than 1 mm in diameter with no significant obstructive disease. The 6 American sheath was exchanged for a 4 American sheath. 70 units per kilo of heparin was given with an ACT of 286. A 0.014 [employer] pressure wire was placed into the proximal LAD. The introducer was removed. The guide catheter was thoroughly flushed with 20 cc of normal saline. Normalization of pressure waveforms was then performed. The 0.014 [employer] pressure wire was then advanced to the distal LAD. IFR was 0.87. Therefore it was determined that the in-stent stenosis of the proximal LAD was physiologically significant. A 3.0 x 12 Euphora balloon was then used to dilate the lesion with one inflation to 11 atmospheres for 20 seconds. The stenosis went from 70% to 0% with DA-III flow. Note, the patient's chest pain was reproduced with inflation of the balloon and relieved fairly rapidly after deflation of the balloon. 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 CONCLUSIONS 1. Unstable angina, [place] [employer] Class IV angina, culprit 70% in-stent stenosis of the proximal LAD with IFR of 0.87 as detailed above. 2. 50-60% mid RCA stenosis in a dominant right coronary artery which does not appear to be significantly changed compared to previous. 3. Otherwise mild two-vessel coronary artery disease in a right dominant system. 4. Low normal LV systolic function, EF 50%. 5. Successful PTCA of the proximal LAD from 70% to 0% with DA-III flow. RECOMMENDATIONS Recommend reload with Plavix 600 mg p.o. in the chemical lab supervisor, Aggrastat drip, continue aspirin 162 mg daily, Plavix 75 mg daily and Crestor motor 20 mg daily. The patient has been instructed by myself to follow-up with me on Thursday or December 02 or December 03 respectively. I again reminded him to be compliant with his aspirin and Plavix on a daily basis. He understands. MD VICKY Us/ULICES /3:42 PM /9:11 AM
--- NOTE | 2017-12-01 15:11 | EKG ---
Date Performed: 11/30/2017 Time Performed: 16:07:06 PTAGE: 62 years EKG: Sinus rhythm . Left axis deviation Inferior infarct - age undetermined Anteroseptal infarct - age undetermined Sin ce previous tracing, no significant change noted Abnormal ECG PREVIOUS TRACING : 11/29/2017 07.56 DOCTOR: Hina Nunez Interpretating Date/Time 12/01/2017 15:09:19
== END 2017-12-01 12:00 | disposition home or self-care (01) | DRG 251 ==
LOC: NEPE 23:25 → NEDA 11-28 07:53 → NEPGCP 11-28 14:54 → HCIS 11-30 15:24 → OBSVTOIN 11-30 15:56 → HCIS 11-30 18:50
PROVIDERS: ADMIT Internal Medicine; ATTEND Internal Medicine
PROC: 4A023N7 Measurement of Cardiac Sampling and Pressure, Left Heart, Percutaneous Approach (ICD-10-PCS; 2017-11-30)
PROC: B2151ZZ Fluoroscopy of Left Heart using Low Osmolar Contrast (ICD-10-PCS; 2017-11-30)
PROC: B2111ZZ Fluoroscopy of Multiple Coronary Arteries using Low Osmolar Contrast (ICD-10-PCS; 2017-11-30)
PROC: 02703ZZ Dilation of Coronary Artery, One Artery, Percutaneous Approach (ICD-10-PCS; principal; 2017-11-30 16:15)
DX: T82.855A Stenosis of coronary artery stent, initial encounter (principal); I10 Essential (primary) hypertension; I25.110 Atherosclerotic heart disease of native coronary artery with unstable angina pectoris; K21.9 Gastro-esophageal reflux disease without esophagitis; Y71.1 Therapeutic (nonsurgical) and rehabilitative cardiovascular devices associated with adverse incidents; E78.5 Hyperlipidemia, unspecified; K59.00 Constipation, unspecified; I25.2 Old myocardial infarction; Z79.02 Long term (current) use of antithrombotics/antiplatelets; Z79.82 Long term (current) use of aspirin; Z87.891 Personal history of nicotine dependence; Z95.5 Presence of coronary angioplasty implant and graft
CPT/HCPCS: 71045; 74177; 80048; 80053; 80061; 82550; 83690; 83735; 83880; 84484; 85025; 85379; 85610; 85730; 93005; C1769; C1887; C1893; J0153; J1644; J2250; J2405; J3246; Q9963; Q9967